=== PATIENT | female | born 1980 | race Caucasian/White ===

== ENCOUNTER 2018-09-08 08:59 | Outpatient (CLI) | payer BC, SELFPAY ==
[2018-09-08 10:49] LABS: HGB 13.4 g/dL (12.0-15.5)
[2018-09-08 11:13] LABS: TSH (W/Ref FT4) 2.13 uIU/mL (0.358-3.74)
== END 2018-09-08 09:19 ==
PROVIDERS: PCP Emergency Medicine; Visit Provider Internal Medicine
DX: E03.9 Hypothyroidism, unspecified (principal); Z86.2 Personal history of diseases of the blood and blood-forming organs and certain disorders involving the immune mechanism
CPT/HCPCS: 36415; 84443; 85014; 85018

== ENCOUNTER 2019-10-02 07:00 | Outpatient (CLI) | payer BC, SELFPAY ==
[2019-10-02 13:10] LABS: TSH 3.12 uIU/mL (0.36-3.74)
== END 2019-10-02 07:20 ==
PROVIDERS: PCP Emergency Medicine; Visit Provider Emergency Medicine
DX: E03.9 Hypothyroidism, unspecified (principal)
CPT/HCPCS: 36415; 84443

== ENCOUNTER 2020-09-17 18:10 | Outpatient (REF) | payer BC, SELFPAY ==
[2020-09-17 21:11] LABS: TSH 0.52 uIU/mL (0.36-3.74)
== END 2020-09-17 18:30 ==
LOC: LBN 18:10
PROVIDERS: PCP Emergency Medicine; Visit Provider Emergency Medicine
DX: E03.9 Hypothyroidism, unspecified (principal)
CPT/HCPCS: 84443

== ENCOUNTER 2021-10-13 09:46 | Outpatient (REF) | payer BC, SELFPAY ==
--- NOTE | 2021-10-13 08:30 | PAPFT_PTH ---
PATIENT: Luciana Munoz LOC: [facility] U#:[id number] AGE/SX: 41/F ROOM: RE10/13/[address]: Vanessa Abad NP : [id number] BED: DIS: 10/13/2021 SPEC #: [id number] RECD: 10/13/21 13:03 STATUS: ROSE RECarter #: [id number] LILO: 10/13/21 08:[address]: Jenniffer SANDOVAL,Vanessa DEPT: [facility] Cytology RECD BY: Beth Montalvo ENTERED: 10/13/21 13:03 SP TYPE: PAPFT OTHR DR: Lucio Barksdale, DO Tissues: 1 - CX/ENDOCX FOR PAP SMEARS Procedures: PAP THIN PREP/UVM Screening HPV DNA PROBE Comments: [id number]
== END 2021-10-13 09:47 | disposition home or self-care (01) ==
LOC: LBN 09:46
PROVIDERS: PCP Emergency Medicine; Visit Provider Nurse Practitioner Women's Health
DX: Z12.4 Encounter for screening for malignant neoplasm of cervix (principal); Z11.51 Encounter for screening for human papillomavirus (HPV)
CPT/HCPCS: 88142; 87624

== ENCOUNTER 2021-10-28 01:25 | Outpatient (CLI) | payer BC, SELFPAY ==
--- NOTE | 2021-10-28 06:30 | DI.MAMMO_ITS ---
Exam(s) MAMMO SCREENING EXAM: MAMMO SCREENING CLINICAL HISTORY: screening,z12.39, family h/o breast ca TECHNIQUE: Bilateral full field digital CC and MLO mammographic images were obtained with 3D tomosyn thesis and utilizing computer aided detection (CAD). COMPARISON: None. FINDINGS: Masses/Architectural Distortion: None seen. Microcalcifications: No suspicious pleomorphic-type are seen. Skin Thickening/Nipple Retraction: None. IMPRESSION: 1. No significant interval change with no specific features of malignancy noted. 2. Unless there is more urgent need, screening mammography is recommended, as per [employer] guidelines. BI-RADS Category 1 - Negative Breast Density - Category B - Scattered areas of fibroglandular density Breast density category C or D implies that the patient has dense breast tissue. Dense breast tissue is very common and is not abnormal but dense breast tissue can make it harder to find cancer on a ma mmogram. Also, dense breast tissue may increase their breast cancer risk. This information about the result of the mammogram report was provided to the patient to raise their awareness. Use this report when you speak with the patient about their risks for breast cancer, which includes their family hist ory. At that time, you may recommend for more screening tests (Ultrasound or MRI) as they might be us eful based on their risk. A negative radiographic report should not delay biopsy if a dominant or clinically suspicious mass is present. Up to ten percent of cancers are not identified on mammography. A negative report may reinforce clinical impression. Adenosis and dense breasts may obscure an underlying neoplasm. False positive reports average 6 to 10%. Patient will receive a letter notifying them of these results.
== END 2021-10-28 01:45 ==
PROVIDERS: PCP Emergency Medicine; Visit Provider Emergency Medicine
DX: Z12.31 Encounter for screening mammogram for malignant neoplasm of breast (principal)
CPT/HCPCS: 77063; 77067

== ENCOUNTER 2022-02-04 18:08 | Outpatient (REF) | payer BC, SELFPAY ==
[2022-02-04 20:22] LABS: TSH 2.06 uIU/mL (0.36-3.74)
[2022-02-06 13:11] LABS: COVID-19 RT-PCR UVMMC Result Negative (Negative)
== END 2022-02-04 18:09 | disposition home or self-care (01) ==
LOC: LBN 18:08
PROVIDERS: Emergency Medicine; PCP Family Medicine; Visit Provider Family Medicine
DX: E03.9 Hypothyroidism, unspecified (principal); Z20.822 Contact with and (suspected) exposure to COVID-19
CPT/HCPCS: U0003; 84443

== ENCOUNTER 2022-12-17 02:01 | Outpatient (CLI) | payer BC, SELFPAY ==
--- NOTE | 2022-12-17 07:55 | DI.MAMMO_ITS ---
Exam(s) MAMMO SCREENING EXAM: MAMMO SCREENING CLINICAL HISTORY: screening,z12.39 TECHNIQUE: Mammograms were interpreted according to the usual protocol including computer analysis w [employer] CAD system, tomosynthesis and C-view imaging. COMPARISON: 2020 FINDINGS: The breasts are composed of scattered fibroglandular densities, Breast Density category B. No suspicious masses or suspicious microcalcifications are seen. No skin thickening or abnormal axillary lymph nodes are seen. There has been no significant change from prior exams. IMPRESSION: BI-RADS Category 1, Negative mammogram Yearly screening mammography is recommended. Breast Density - Category B, scattered fibroglandular densities. A negative radiographic report should not delay biopsy if a dominant or clinically suspicious mass is present. Up to ten percent of cancers are not identified on mammography. A negative report may reinforce clinical impression. Adenosis and dense breasts may obscure an underlying neoplasm. False positive reports average 6 to 10%. Patient will receive a letter notifying them of these results.
== END 2022-12-17 02:21 ==
LOC: DI 02:01
PROVIDERS: PCP Nurse Practitioner Family; Visit Provider Nurse Practitioner Family
DX: Z12.31 Encounter for screening mammogram for malignant neoplasm of breast (principal)
CPT/HCPCS: 77063; 77067

== ENCOUNTER 2023-02-23 02:32 | Outpatient (CLI) | payer BC, SELFPAY ==
[2023-02-23 18:14] LABS: TSH (W/Ref FT4) 2.29 uIU/mL (0.36-3.74)
[2023-02-25 10:45] LABS: Hepatitis C Ab w Rflx HCV PCR Negative (Negative)
== END 2023-02-23 02:33 | disposition home or self-care (01) ==
PROVIDERS: PCP Nurse Practitioner Family; Visit Provider Nurse Practitioner Family
DX: Z11.59 Encounter for screening for other viral diseases (principal); E03.9 Hypothyroidism, unspecified
CPT/HCPCS: 36415; 86803; 84443

== ENCOUNTER 2023-11-19 10:14 | Outpatient (REF) | payer BC, SELFPAY ==
[2023-11-19 12:13] LABS: HCT 38.1 % (36.0-46.0); HGB 12.5 g/dL (11.2-15.7); MCH 30.2 pg (27.0-33.0); MCHC 32.8 % (32.0-36.0); MCV 92 fL (80-95); Platelet Count 207 10^3/uL (130-400); RBC 4.14 10^6/uL (3.93-5.22); RDW 13.8 % (11.7-14.6); RDW-SD 46.7 fL; WBC 6.41 10^3/uL (4.4-10.8)
[2023-11-19 12:47] LABS: ALT 27 U/L (14-59); AST 18 U/L (15-37); Albumin 3.8 g/dL (3.4-5.0); Alkaline Phosphatase 50 U/L (46-116); Anion Gap 8.7 mmol/L (3-11); BUN 13 mg/dL (7-18); Bilirubin, Total 0.3 mg/dL (0.2-1.0); CO2 24.3 mmol/L (21.0-32.0); CREATININE 0.7 mg/dL (0.55-1.02); Calcium 9.4 mg/dL (8.5-10.1); Calculated LDL 138 mg/dL (<100); Chloride 105 mmol/L (98-107); Cholesterol 241 mg/dL (<200); Estimated GFR 110.67 (mL/min/1.73m2); Glucose 101 mg/dL (74-106); HDL Cholesterol 96 mg/dL (40-60); Sodium 138 mmol/L (136-145); TSH (W/Ref FT4) 2.07 uIU/mL (0.36-3.74); Total Protein 7.7 g/dL (6.4-8.2); Triglyceride 39 mg/dL (<150); Vitamin B12 363 pg/mL (193-986)
== END 2023-11-19 10:15 | disposition home or self-care (01) ==
LOC: LBN 10:14
PROVIDERS: PCP Nurse Practitioner Family; Visit Provider Nurse Practitioner Family
DX: E03.9 Hypothyroidism, unspecified (principal); R41.3 Other amnesia; Z13.220 Encounter for screening for lipoid disorders
CPT/HCPCS: 80053; 80061; 85027; 82607; 84443

== ENCOUNTER 2023-12-13 04:05 | Outpatient (CLI) | payer BC, SELFPAY ==
--- NOTE | 2023-12-13 13:44 | W.PFT ---
Date of service: 12/13/23 Time of Service: 10:05 Pulmonary Function Test Result Indications: Wheezing Interpretation Spirometry: There is no baseline airflow limitation. There was a 22% decrease in FEV1 with administration of 0.5mg/mL methacholine. Impression Positive methacholine challenge testing Clinical Correlation therefore is recommended.
[2023-12-13] MEDS: Methacholine 100 MG VIAL IH (14:42)
[2023-12-13] MEDS: Albuterol HFA 18 GM 200 PUFF INH IH (14:42)
[2023-12-13] MEDS: Inhaler, Assist Device 1 EACH MC (14:43)
== END 2023-12-13 04:06 | disposition home or self-care (01) ==
LOC: RT 04:05
PROVIDERS: PCP Nurse Practitioner Family; Visit Provider Nurse Practitioner Family
DX: R06.00 Dyspnea, unspecified (principal)
CPT/HCPCS: 94060; 94070; J7674

== ENCOUNTER 2024-12-19 00:18 | Outpatient (CLI) | payer BC, SELFPAY ==
--- OUTSIDE RECORDS SUMMARY | 2024-12-19 00:20 | XMS_ITS | Encounter Summary ---
[place] [address] Care Team Providers Care Bingo Caller Name Role Phone Lucio Barksdale DO Primary Care Provider Encounter Details Date Type Department Care Team (Late st Contact Info) Description 09/06/2019 [place] [phone] Mich Arellano Social History Tobacco Use Types Packs/Day Years Used Date Smoking Tobacco: Never Smokeless Tobacco: Never Comments:No ets Sex and Gender Information Value Date Recorded Sex Assigned at Not on file Gender Identity Not on file Sexual Orientation Not on file documented as of this encounter Miscellaneous Notes * Telephone Encounter - Mich Arellano - 09/06/2019 2:38 PM EDT Left message for pt to call to schedule surgery with Dr. Angel Luis Man. documented in this encounter Plan of Treatment Not on file documented as of this encounter Visit Diagnoses Not on filedocumented in this encounter Care Teams Bingo Caller Relationship Specialty Start Date End Date Lucio Barksdale DO [address] [place], [place] [id number] PCP - General Family Medicine 04/11/19 documented as of this encounter
--- OUTSIDE RECORDS SUMMARY | 2024-12-19 00:20 | XMS_ITS | Encounter Summary ---
[place] [address] Care Team Providers Care Traffic Recorder Name Role Phone Lucio Barksdale DO Primary Care Provider [phone] Encounter Details Date Type Department Care Team (Late st Contact Info) Description 10/19/2019 Telephone [place] [phone] Enedina Law RN Social History Tobacco Use Types Packs/Day Years Used Date Smoking Tobacco: Never Smokeless Tobacco: Never Comments:No ets Sex and Gender Information Value Date Recorded Sex Assigned at Not on file Gender Identity Not on file Sexual Orientation Not on file documented as of this encounter Miscellaneous Notes * Telephone Encounter - Enedina Law RN - 10/19/2019 4:30 PM EST Returned 's call. is asking how to alternate tylenol and ibuprofen. Instructions given according to package directions.Patient inquiring about what to expect at follow up appointment. Explanations given with stated understanding. No other questions or concerns at this time. documented in this encounter Plan of Treatment Not on file documented as of this encounter Visit Diagnoses Not on filedocumented in this encounter Care Teams Traffic Recorder Relationship Specialty Start Date End Date Lucio Barksdale DO [address] [place] [address] PCP - General Family Medicine 04/11/19 documented as of this encounter
--- OUTSIDE RECORDS SUMMARY | 2024-12-19 00:20 | XMS_ITS | Encounter Summary ---
[place] [address] Care Team Providers Care Corn Popper Name Role Phone Lucio Barksdale DO Primary Care Provider Encounter Details Date Type Department Care Team (Late st Contact Info) Description 11/29/2019 Telephone [place] [phone] Denisse Christopher Social History Tobacco Use Types Packs/Day Years Used Date Smoking Tobacco: Never Smokeless Tobacco: Never Comments:No ets Sex and Gender Information Value Date Recorded Sex Assigned at Not on file Gender Identity Not on file Sexual Orientation Not on file documented as of this encounter Miscellaneous Notes * Telephone Encounter - Denisse Christopher - 11/29/2019 3:33 PM EST Called patient to schedule 8 week FUV with RS final check post Septoplasty. Lft VM with tentative date and time and advised to contact the clinic to confirm or reschedule. documented in this encounter Plan of Treatment Not on file documented as of this encounter Visit Diagnoses Not on filedocumented in this encounter Care Teams Corn Popper Relationship Specialty Start Date End Date Lucio Barksdale DO [address] [place] [address] PCP - General Family Medicine 04/11/19 documented as of this encounter
--- OUTSIDE RECORDS SUMMARY | 2024-12-19 00:20 | XMS_ITS | Encounter Summary ---
[place] [address] Care Team Providers Care Airport Screener Name Role Phone Lucio Barksdale DO Primary Care Provider Encounter Details Date Type Department Care Team (Late st Contact Info) Description 07/31/2019 8:00 AM EDT [place] [address] Social History Tobacco Use Types Packs/Day Years Used Date Smoking Tobacco: Never Smokeless Tobacco: Never Comments:No ets Sex and Gender Information Value Date Recorded Sex Assigned at Not on file Gender Identity Not on file Sexual Orientation Not on file documented as of this encounter Plan of Treatment Not on file documented as of this encounter Procedures Procedure Name Priority Date/Time Associated Diagnosis Comments ALLERGY SCAN 07/31/2019 12:00 AM EDT documented in this encounter Results * SCAN DOC: ALLERGY (07/31/2019 12:00 AM EDT) Narrative 07/31/2019 12:00 AM EDT Ordered by an unspecified provider. Scanning Provider MEDIA MGR SCAN EXT O RDR/RSLT documented in this encounter Visit Diagnoses Not on filedocumented in this encounter Care Teams Airport Screener Relationship Specialty Start Date End Date Lucio Barksdale DO [address] [place] [address] PCP - General Family Medicine 04/11/19 documented as of this encounter
--- OUTSIDE RECORDS SUMMARY | 2024-12-19 00:20 | XMS_ITS | Encounter Summary ---
Author Organization [facility] [place] [address] Care Team Providers Care Manager Product Support Name Role Phone ShamirLucio burgos Primary Care Provider Reason for Visit * Auth/Cert Specialty Diagnoses / Procedures Referred By Zachary miramontes Referred To Contact Diagnoses deviated nasal septum Procedures PRO REPAIR OF NASAL SEPTUM PRO CAUTER TURBINATE MUCOSA, SUPERFICIAL SEPTOPLASTY OR SMR, W/ OR W/O CARTILAGE SCORING, CONTOURING OR REPLACEMENT W/ GRAFT (WRVU 7.01) ABLATION INFERIOR TURBINATE, SUPERFICIAL (WRVU 1.14) Referral ID Status Reason Start Date Expiration Date Visits Re quested Visits Authorized [id number] 1 1 Encounter Details Date Type Department Care Team (Latest Contact Info) Description 10/19/2019 10:05 AM EST - 10/19/2019 1:21 PM [facility] Hospital Encounter Out[place] [address] Angel Luis Man III, MD [facility] [place] [address] Discharge Disposition: Home Social History Tobacco Use Types Packs/Day Years Used Date Smoking Tobacco: Never Smokeless Tobacco: Never Comments:No ets Sex and Gender Information Value Date Recorded Sex Assigned at Not on file Gender Identity Not on file Sexual Orientation Not on file documented as of this encounter Last Filed Vital Signs Vital Sign Reading Time Taken Comments Blood Pressure 137/84 10/19/2019 1:04 PM EST Pulse 69 10/19/2019 1:04 PM EST Temperature 36.5 ??C (97.7 ??F) 10/19/2019 12:[address] Respiratory Rate 18 10/19/2019 1:04 PM EST Oxygen Saturation 99% 10/19/2019 1:04 PM EST Inhaled Oxygen Concentration - - Weight 78 kg (172 lb) 10/19/2019 11:00 AM EST Height - - Body Mass Index 30.47 08/23/2019 11:01 AM EDT documented in this encounter Discharge Instructions * Discharge Instructions* Stacey Pardo RN - 10/19/2019 10:49 AM EST General Anesthesia Discharge Instructions Go home and rest. You may be sleepy for several hours. Take it easy as sudden position changes may cause nausea and/or dizziness. Use caution on stairs. Do not smoke if you are alone. Follow a light to regular diet as tolerated today. If nausea occurs, start with clear liquids, and progress slowly to a regular diet. Do not drive, operate machinery, drink alcoholic beverages or make any legal decisions after havinggeneral anesthesia. The medications given change your reaction time and alter your judgement. IV site -- slight redness is normal, you can use warm compresses. If tenderness and redness increases or foul drainage occurs, please contact your M.D. Patients who have had endotracheal tubes/LMA (tubes used by the anesthesia staff to ensure a safe airway during your operation) may have a sore throat. This is normal and cold liquids or soothing lozenges will help ease this discomfort. Narcotic pain medications can cause constipation, please ask the surgeons office what they recommend for prevention of this. Some non-pharmaceutical means of constipation prevention include increasing intake of fluids, eating more fruits and vegetables as well as fruit juices. If you are uncomfortable and/or unable to urinate within 8 hours of discharge and it is before 5 pm, call your physician. If it is after 5pm go to the closest emergency room or call the hospital hydropulper operator at [phone] and ask for physician environmental analyst covering for your physician. Questions or problems after 5pm or on a weekend: Call the [facility] hydropulper operator at and ask for the physician environmental analyst covering for your doctor. * Patient Instructions* Angel Luis Man III, MD - 10/19/2019 11:28 AM EST Endoscopic Sinus Surgery/Septoplasty - Postoperative Discharge Instructions You are being discharged to home after having undergone septoplasty This procedure is designed to better manage your nasal symptoms. What we as a team (physicians, nurses and the patient) do in the immediate postoperative period will impact your long-term results and outcome. Instructions: 1. Avoid strenuous activity for the first 48 hours, and slowly increase activity. Avoid lifting (for most adults) objects heavier than 20 lbs for the first five days. 2. Keep a drip pad (gauze) under your nose for comfort, if you would like. 3. Avoid straining significantly to have bowel movements. Use gdjw-ziy-kezredz stool softeners if needed. 4. Sneeze with your mouth open. 5. Your nose may feel very congested post surgery (like a sinus infection). This is normal. You mayuse Afrin nasal spray as needed for the first 48 hours after surgery. And for significant bleeding. 6. Buy a Roe-Med sinus rinse kit or use nasal saline spray every few hours to keep your nose moist. You will notice blood-stained discharge initially which progressively clears. 7. Unless specifically told otherwise, start blowing your nose gently after saline rinses on postoperative day #5 . 8. Follow up with your surgeon as scheduled. 9. DO NOT USE ASPIRIN FOR PAIN for the first 72 hours 10. If you are on Baby or regular Asprin therapy, you may resume it therapy three days after yoursurgery. If you are on Plavix, please wait for one week and confirm at your first post op check When to Call: 1. Fever greater than 101.5 degrees. 2. Unrelenting pain (especially on one side) not responsive to two or three doses of pain medicinesand saline rinses 3. Bleeding. A good way to measure significant bleeding from normal ???postoperative?? oozing is to tape a drip pad under your nose. If you are changing this more than once an hour and this does notimprove with afrin spray, you need to be evaluated. 4. Nausea or vomiting. 5. Blurry vision, eye pain or eye swelling Contact Information: ?? The Otolaryngology nurse can be reached at and can answer any ?? questions you may have during the day. ?? The [facility] hydropulper operator can be reached at and can connectyou with a resident environmental analyst if necessary after hours. If you need to reschedule your appointment please call the clinic at . documented in this encounter Medications at Time of Discharge Medication Sig Dispensed Refills Start Date End Date montelukast (SINGULAIR) 10 mg Tablet Take 1 tablet by mouth nightly. 30 tablet 12 07/31/2019 cetirizine (ZYRTEC) 10 mg Tablet 06/15/2019 levothyroxine (SYNTHROID) 75 mcg Tablet 05/14/2019 triamcinolone (KENALOG) 0.1 % Cream 04/11/2019 albuterol 90 mcg/actuation HFA Aerosol Inhaler Inhale 2 puffs into the lungs every 4 hours as needed for Wheezing. 1 Inhaler 1 06/26/2019 azelastine (ASTELIN) 137 mcg (0.1 %) Aerosol, [place] 2 sprays in each nostril BID 30 mL 11 06/26/2019 [facility] Free Text Med - Albuterol 07/10/2008 MOMETASONE FUROATE (NASONEX NASL) 07/10/2008 fexofenadine (JEFF) 180 mg tablet 07/10/2008 documented as of this encounter H&P Notes * Angel Luis Man III, MD - 10/19/2019 11:10 AM EST Patient Name: Luciana Sinclair Patient Age: 39 y.o. Birthdate: 1980 Admit date: 10/19/2019 Attending Physician: Angel Luis Man III, MD The pre-operative documentation is reviewed, and there is no change since the last physical examination was done. documented in this encounter Miscellaneous Notes * Op Note - Angel Luis Man III, MD - 10/19/2019 11:26 AM EST [facility] Operative Note Patient Name: Luciana Sinclair : [id number] MR#: [id number] Case Date: 10/19/2019 Surgeon: Surgeon(s) and Role: * Angel Luis Man III, MD - Primary Preoperative diagnosis: deviated nasal septum Postoperative diagnosis: deviated nasal septum Procedure(s) (LRB): SEPTOPLASTY OR SMR, W/ OR W/O CARTILAGE SCORING, CONTOURING OR REPLACEMENT W/ GRAFT (WRVU 7.01) (N/A) ABLATION INFERIOR TURBINATE, SUPERFICIAL (WRVU 1.14) (Bilateral) Anesthesia: General Estimated Blood Loss: * No values recorded between 10/19/2019 12:00 AM and 10/19/2019 11:26 AM * Specimens removed during surgery: * No orders in the log * Drains: * No LDAs found * Surgical Closure: Primary Closure - skin incision is completely closed without any wires, malik, drains or other devices Disposition: awakened from anesthesia, extubated and taken to the recovery room in a stable condition, having suffered no apparent untoward event. Condition: doing well without problems (Please see the Surgical Encounter Summary for any Implant and Specimen details pertinent to this patient.) HPI/Surgical Indications: deviated nasal septum, turbinate hypertrophy Procedure Description: The patient was brought to the operating room, and following the induction of satisfactory general anesthesia was positioned in standard fashion for nasal surgery. Bilateral decongestant/anesthetic packs were placed, and one ml of 2% lidocaide with epi was injected into the anterior septum on the right side. After sufficient time was allowed for the anesthetic to work the packs were removed. An anterior septal incision was made on the right side, and using a [place] elevator the perichondrium and periosteum were elevated as far posteriorly as needed. The cartilaginous septum was from the bony septum, and areas of bony or cartilaginous spurring were removed with Karen forceps and/or double action rongeurs to straighten the septum. Scoring of the cartilaginous remnant in this case was accomplished with a # 15 blade.. The anterior incision was closed witha single 4-0 chromic suture. Each inferior turbinate was next reduced in size with the bipolar cautery and out fractured, greatly enlarging the airway. Hart splints were placed, and the patient was returned to the recovery room in satisfactory condition. Infection Bundle used? No Attestation: Case Date: 10/19/2019 I performed this procedure without the involvement of a resident. Angel Luis Man III, MD 10/19/2019 documented in this encounter Plan of Treatment Not on file documented as of this encounter Procedures Procedure Name Priority Date/Time Associated Diagnosis Comments Ablation Soft Tissue Inferior Turbinates Uni/Bi Superficial (53090) 10/19/2019 11:29 AM EST DNS (deviated nasal septum) Nasal turbinate hypertrophy Septoplasty/Submucou s Resection W/Wo Cartilage Graft (68131) 10/19/2019 11:29 AM EST DNS (deviated nasal septum) Nasal turbinate hypertrophy POCT URINE Routine 10/19/2019 documented in this encounter Results * POCT urine (10/19/2019) POC Urine HCG Negative Negative - Negative Comment:RN notified POC Control Internal Controls Acceptable 10/19/2019 Angel Luis Man III, MD POINT OF CARE TE ST ORDERABLES documented in this encounter Visit Diagnoses Not on filedocumented in this encounter Administered Medications Inactive Administered Medications - up to 3 most recent administrations Medication Order MAR Action Action Date Dose Rate Site HYDROmorphone (DILAUDID) injection 0.2-0.4 mg 0.2-0.4 mg, Intravenous, EVERY 5 MIN PRN, Starting on Mela 10/19/19 at 1220, Until Mela 10/19/19 at 1523, Pain, Give 0.2 mg every 5 minutes PRN for mild to moderate pain (1-5) Give 0.4 mg every 5 minutes PRN for moderate to severe pain (6-10). Hold for respiratory rate less than 10 per minute. Maximum dose 4 mg over one hour. If multiple pain medications are ordered, start with hydromorphone or morphine and use fentanyl for breakthrough pain., PACU Recovery, Routine ibuprofen (ADVIL;MOTRIN) tablet 600 mg 600 mg, Oral, EVERY 6 HOURS PRN, Starting on Mela 10/19/19 at 1112, Until Mela 10/19/19 at 1523, Pain, Administer orally with milk or food to minimize GI irritation. Maximum dose of 3200 mg from all sources in 24 hours, Routine ibuprofen (ADVIL;MOTRIN) tablet 600 mg 600 mg, Oral, EVERY 6 HOURS PRN, Starting on Mela 10/19/19 at 1126, Until Mela 10/19/19 at 1523, Pain, Administer orally with milk or food to minimize GI irritation. Maximum dose of 3200 mg from all sources in 24 hours, Routine lactated ringers infusion 1,000 mL, at 100 mL/hr, Intravenous, CONTINUOUS, Starting on Mela 10/19/19 at 1115, Until Mela 10/19/19 at 1523, Day of Surgery (Day of Procedure) New Bag 10/19/2019 11:29 AM EST New Bag 10/19/2019 11:20 AM EST 1,000 mLs 100 mL/hr lidocaine (XYLOCAINE) 10 mg/mL (1 %) injection 3 mg 3 mg (0.3 mL), Subcutaneous, ONCE PRN, 1 dose, Starting on Mela 10/19/19 at 1048, Until Mela 10/19/19 at 1523, for discomfort with PIV insertion, Day of Surgery (Day of Procedure), Routine lidocaine (XYLOCAINE) 10 mg/mL (1 %) injection 3 mg 3 mg (0.3 mL), Subcutaneous, ONCE PRN, 1 dose, Starting on Mela 10/19/19 at 1111, Until Mela 10/19/19 at 1523, for discomfort with PIV insertion, Routine lidocaine (XYLOCAINE) 10 mg/mL (1 %) injection 3 mg 3 mg (0.3 mL), Subcutaneous, ONCE PRN, 1 dose, Starting on Mela 10/19/19 at 1125, Until Mela 10/19/19 at 1523, for discomfort with PIV insertion, Routine naloxone (NARCAN) injection 0.04 mg 0.04 mg, Intravenous, EVERY 5 MIN PRN, Starting on Mela 10/19/19 at 1220, Until Mela 10/19/19 at 1523, Opioid Reversal, for respiratory rate less than 6 or unresponsive., May repeat every 5 minutes to increase respiratory rate. DO NOT exceed 0.12 mg total dose. Notify anesthesia immediately if administered., PACU Recovery, Routine ondansetron (ZOFRAN) injection 4 mg 4 mg, Intravenous, EVERY 30 MIN PRN, Starting on Mela 12 at 1220, Until Mela 12 at 1523, Nausea, May repeat 4 mg once in 30 minutes. If multiple antiemetics ordered, use ondansetron first and if ineffective use prochlorperazine second and if ineffective use promethazine, PACU Recovery sodium chloride 0.9 % (flush) flush 5 mL 5 mL, Intravenous, 2 TIMES DAILY, First dose on Mela 10/19/19 at 1130, Until Discontinued, Routine sodium chloride 0.9 % (flush) flush 5 mL 5 mL, Intravenous, 2 TIMES DAILY, First dose on Mela 10/19/19 at 1145, Until Discontinued, Routine sodium chloride 0.9 % (flush) flush 5-20 mL 5-20 mL, Intravenous, EVERY 1 MIN PRN, Starting on Mela 10/19/19 at 1048, Until Mela 12 at 1523, flush, Flush pertains to all indwelling lines. Flush per protocol found in the job aid using the link provided on this medication record., Day of Surgery (Day of Procedure), Routine sodium chloride 0.9 % (flush) flush 5-20 mL 5-20 mL, Intravenous, EVERY 1 MIN PRN, Starting on Mela 10/19/19 at 1111, Until Mela 12 at 1523, flush, Flush pertains to all indwelling lines. Flush per protocol found in the job aid using the link provided on this medication record., Routine sodium chloride 0.9 % (flush) flush 5-20 mL 5-20 mL, Intravenous, EVERY 1 MIN PRN, Starting on Mela 10/19/19 at 1125, Until Mela 1219 at 1523, flush, Flush pertains to all indwelling lines. Flush per protocol found in the job aid using the link provided on this medication record., Routine documented in this encounter Active and Recently Administered Medications Times are shown in EST. Scheduled Medication Order 10/17/2019 10/18/2019 10/19/2019 sodium chloride 0.9 % (flush) flush 5 mL 5 mL, Intravenous, 2 TIMES DAILY, First dose on Mela 10/19/19 at 1130, Until Discontinued, Routine 1130 (Due) sodium chloride 0.9 % (flush) flush 5 mL 5 mL, Intravenous, 2 TIMES DAILY, First dose on Mela 10/19/19 at 1145, Until Discontinued, Routine 1145 (Due) Continuous Medication Order 10/17/2019 10/18/2019 10/19/2019 lactated ringers infusion 1,000 mL, at 100 mL/hr, Intravenous, CONTINUOUS, Starting on Mela 10/19/19 at 1115, Until Mela 10/19/19 at 1523, Day of Surgery (Day of Procedure) 1120 (New Bag - Prov ider: Stacey Pardo RN)1129 (New Bag - Provider: Albert Freedman MD)1210 (Anesthesia Volume Adjustment - Provider: Denisse Hoffmann CRNA) PRN Medication Order 10/17/2019 10/18/2019 10/19/2019 bacitracin ointment (CANCELED) ONCE PRN, Starting on Mela 10/19/19 at 1147, Until Mela 10/19/19 at 1523, Intra-Operative (Intra-Procedure) 1147 (Given - Provid er: Angel Luis Man III, MD - Comment: On Hart splints) cocaine HCl 4% topical solution (CANCELED) ONCE PRN, Starting on Mela 10/19/19 at 1140, Until Mela 10/19/19 at 1523, Intra-Operative (Intra-Procedure) 1140 (Given - Provid er: Angel Luis Man III, MD - Comment: Paddies soaked and applied to both nostrils prior to incision.) HYDROmorphone (DILAUDID) injection 0.2-0.4 mg 0.2-0.4 mg, Intravenous, EVERY 5 MIN PRN, Starting on Mela 19 at 1220, Until Mela 1219 at 1523, Pain, Give 0.2 mg every 5 minutes PRN for mild to moderate pain (1-5) Give 0.4 mg every 5 minutes PRN for moderate to severe pain (6-10). Hold for respiratory rate less than 10 per minute. Maximum dose 4 mg over one hour. If multiple pain medications are ordered, start with hydromorphone or morphine and use fentanyl for breakthrough pain., PACU Recovery, Routine ibuprofen (ADVIL;MOTRIN) tablet 600 mg 600 mg, Oral, EVERY 6 HOURS PRN, Starting on Mela 1219 at 1112, Until Mela 1219 at 1523, Pain, Administer orally with milk or food to minimize GI irritation. Maximum dose of 3200 mg from all sources in 24 hours, Routine ibuprofen (ADVIL;MOTRIN) tablet 600 mg 600 mg, Oral, EVERY 6 HOURS PRN, Starting on Mela 19 at 1126, Until Mela 1219 at 1523, Pain, Administer orally with milk or food to minimize GI irritation. Maximum dose of 3200 mg from all sources in 24 hours, Routine lidocaine (XYLOCAINE) 10 mg/mL (1 %) injection 3 mg 3 mg (0.3 mL), Subcutaneous, ONCE PRN, 1 dose, Starting on Mela 19 at 1048, Until Mela 1219 at 1523, for discomfort with PIV insertion, Day of Surgery (Day of Procedure), Routine lidocaine (XYLOCAINE) 10 mg/mL (1 %) injection 3 mg 3 mg (0.3 mL), Subcutaneous, ONCE PRN, 1 dose, Starting on Mela 1219 at 1111, Until Mela 12//19 at 1523, for discomfort with PIV insertion, Routine lidocaine (XYLOCAINE) 10 mg/mL (1 %) injection 3 mg 3 mg (0.3 mL), Subcutaneous, ONCE PRN, 1 dose, Starting on Mela 1219 at 1125, Until Mela 12//19 at 1523, for discomfort with PIV insertion, Routine lidocaine-EPINEPHrine 1 %-1:100,000 injection (CANCELED) ONCE PRN, Starting on Mela 1219 at 1143, Until Mela 12//19 at 1523, Intra-Operative (Intra-Procedure), Routine 1143 (Given - Provid er: Angel Luis Man III, MD) naloxone (NARCAN) injection 0.04 mg 0.04 mg, Intravenous, EVERY 5 MIN PRN, Starting on Mela 1219 at 1220, Until Mela 12//19 at 1523, Opioid Reversal, for respiratory rate less than 6 or unresponsive., May repeat every 5 minutes to increase respiratory rate. DO NOT exceed 0.12 mg total dose. Notify anesthesia immediately if administered., PACU Recovery, Routine ondansetron (ZOFRAN) injection 4 mg 4 mg, Intravenous, EVERY 30 MIN PRN, Starting on Mela 1219 at 1220, Until Mela 1219 at 1523, Nausea, May repeat 4 mg once in 30 minutes. If multiple antiemetics ordered, use ondansetron first and if ineffective use prochlorperazine second and if ineffective use promethazine, PACU Recovery sodium chloride 0.9 % (flush) flush 5-20 mL 5-20 mL, Intravenous, EVERY 1 MIN PRN, Starting on Mela 1219 at 1048, Until Mela 1219 at 1523, flush, Flush pertains to all indwelling lines. Flush per protocol found in the job aid using the link provided on this medication record., Day of Surgery (Day of Procedure), Routine sodium chloride 0.9 % (flush) flush 5-20 mL 5-20 mL, Intravenous, EVERY 1 MIN PRN, Starting on Mela 1219 at 1111, Until Mela 1219 at 1523, flush, Flush pertains to all indwelling lines. Flush per protocol found in the job aid using the link provided on this medication record., Routine sodium chloride 0.9 % (flush) flush 5-20 mL 5-20 mL, Intravenous, EVERY 1 MIN PRN, Starting on Mela 1219 at 1125, Until Mela 12//19 at 1523, flush, Flush pertains to all indwelling lines. Flush per protocol found in the job aid using the link provided on this medication record., Routine documented in this encounter Care Teams Manager Product Support Relationship Specialty Start Date End Date Lucio Barksdale DO [address] [place] [address] [address] [facility] [address] [place] [address] PCP - General Family Medicine 04/11/19 documented as of this encounter
--- OUTSIDE RECORDS SUMMARY | 2024-12-19 00:20 | XMS_ITS | Encounter Summary ---
[place] [address] Care Team Providers Care Exerciser Name Role Phone Lucio Barksdale DO Primary Care Provider Encounter Details Date Type Department Care Team (Late st Contact Info) Description 09/07/2019 Telephone [place] [id number] Mich Arellano Social History Tobacco Use Types Packs/Day Years Used Date Smoking Tobacco: Never Smokeless Tobacco: Never Comments:No ets Sex and Gender Information Value Date Recorded Sex Assigned at Not on file Gender Identity Not on file Sexual Orientation Not on file documented as of this encounter Miscellaneous Notes * Telephone Encounter - Mich Arellano - 09/07/2019 10:56 AM EDT CONFIRMED SURGERY DATE OF 09/21 WITH PATIENT. NO FOLLOWUP INDICATED IN SURGICAL ORDER. documented in this encounter Plan of Treatment Not on file documented as of this encounter Visit Diagnoses Not on filedocumented in this encounter Care Teams Exerciser Relationship Specialty Start Date End Date Lucio Barksdale DO [address] [place] [address] [place], [place] [id number] PCP - General Family Medicine 04/11/19 documented as of this encounter
--- OUTSIDE RECORDS SUMMARY | 2024-12-19 00:20 | XMS_ITS | Clinical Summary ---
Author Organization [facility] Address [address] [place] [address] Care Team Providers Care Tariff Clerk Name Role Phone Eric Lozoya MD Primary Care Provider [phone] Immunizations Name Administration Dates Next Due Historical Influenza Vaccine, Unspecified 2021 Social History Tobacco Use Types Packs/Day Years Used Date Smoking Tobacco: Never Assessed Comments Unknown Sex and Gender Information Value Date Recorded Sex Assigned at Not on file Legal Sex Female 18:38 EST Gender Identity Not on file Sexual Orientation Not on file Plan of Treatment Health Maintenance Due Date Last Done Comments Hepatitis B Vaccine (1 of 3 - 19+ 3-dose series) 06/16 COVID-19 Vaccine ( season) 2024 Hepatitis C Screen Completed 02/23/2023 Procedures Procedure Name Priority Date/Time Associated Diagnosis Comments HEPATITIS C AB W REFLEX TO HCV RNA BY PCR Routine 02/23/2023 16:43 EDT from Last 3 Months or Most Recently Relevant to Health Maintenance Results * HEPATITIS C AB W REFLEX TO HCV RNA BY PCR (02/23/2023 16:43 EDT) Hep C Antibody Negative Negative 02/25/2023 10:00 EDT [facility] Blood VENOUS BLOOD / Unknown 02/23/2023 16:43 EDT 02/24/2023 16:59 EDT us Provider Outr Resulting Lab CHEMISTRY & BLOOD GA S ORDERABLES Final Result [facility] [address] [place] [address] from Last 3 Months or Most Recently Relevant to Health Maintenance Care Teams Tariff Clerk Relationship Specialty Start Date End Date Eric Lozoya MD [address] [place] [phone] PCP - General 09/25/15
--- OUTSIDE RECORDS SUMMARY | 2024-12-19 00:20 | XMS_ITS | Encounter Summary ---
Author Organization [facility] [place] [address] Care Team Providers Care Medical Office Assistant Name Role Phone ShamirLucio burgos Primary Care Provider [phone] Reason for Visit * Reason Comments Follow-up final check feeling great Encounter Details Date Type Department Care Team (Late st Contact Info) Description 12/26/2019 11:40 AM EST Office [place] [address] Angel Luis Man III, MD [facility] [place] [address] DNS (deviated nasal septum) Social History Tobacco Use Types Packs/Day Years Used Date Smoking Tobacco: Never Smokeless Tobacco: Never Comments:No ets Sex and Gender Information Value Date Recorded Sex Assigned at Not on file Gender Identity Not on file Sexual Orientation Not on file documented as of this encounter Last Filed Vital Signs Vital Sign Reading Time Taken Comments Blood Pressure - - Pulse - - Temperature - - Respiratory Rate - - Oxygen Saturation - - Inhaled Oxygen Concentration - - Weight 78 kg (172 lb) 12/26/2019 11:47 AM EST Height 160 cm (5' 3) 12/26/2019 11:47 AM EST Body Mass Index 30.47 12/26/2019 11:47 AM EST documented in this encounter Progress Notes * Angel Luis Man III, MD - 12/26/2019 11:40 AM EST This note created with [employer] speech recognition software. Luciana Sinclair returns for final check. She is delighted with the result, noting a return ofher sense of smell and markedly improved breathing. She also notes that during a recent cold she was able to breathe throughout the illness. Review of Systems: A complete review of constitutional, eyes, cardiovascular, respiratory, GI, , musculo-skeletal, skin, endocrine, psychiatric, hematologic, lymphatic and immunologic systems is completed and is as noted in the HPI. All other systems are otherwise negative. Examination shows the following: GENERAL: Well developed, well appearing, no acute distress. Vitals reviewed. HEAD/FACE/EYES: Normocephalic with no gross deformity. Extraocular movements intact. EARS: Normal exam of the external ear, ear canal, and middle ear bilaterally. NOSE: Normal external nasal exam. Excellent airways bilaterally. Septum midline. Turbinates are normal. SALIVARY: Parotid and submandibular glands are normal to inspection and palpation. ORAL CAVITY: Normal exam of oral tongue Normal mucosa without lesion Floor of mouth is soft. Dentition good repair OROPHARYNX: Normal tonsils. Normal soft palate and uvula. Posterior pharyngeal wall normal. LARYNX: Vocal cords normal. Vocal mobility normal. No mucosal lesions noted. NECK: No asymmetry on inspection No adenopathy. Normal thyroid. RESPIRATORY: Normal voice. No stridor. Normal respirations. CV: Normal carotid pulses. NEURO/PSYCH: Normal affect. Alert and oriented x 3. Responds appropriately to questions. CN II-XII grossly intact. PROCEDURES: IMPRESSION: Well healed septoplasty with excellent airways. We will see her again only as needed. documented in this encounter Plan of Treatment Not on file documented as of this encounter Visit Diagnoses Diagnosis DNS (deviated nasal septum) Deviated nasal septum documented in this encounter Care Teams Medical Office Assistant Relationship Specialty Start Date End Date Lucio Barksdale DO [address] [place] [address] PCP - General Family Medicine 04/11/19 documented as of this encounter
--- OUTSIDE RECORDS SUMMARY | 2024-12-19 00:20 | XMS_ITS | Clinical Summary ---
Author Organization [facility] [place] [address] Care Team Providers Care Canvas Goods Supervisor Name Role Phone ShamirLucio whalen Primary Care Provider [phone] Allergies No known active allergies Medications Medication Sig Dispensed Refills Start Date End Date Status CIS Free Text Med - Albuterol 07/10/2008 Active MOMETASONE FUROATE (NASONEX NASL) 07/10/2008 Active fexofenadine (JEFF) 180 mg tablet 07/10/2008 Active cetirizine (ZYRTEC) 10 mg Tablet 06/15/2019 Active levothyroxine (SYNTHROID) 75 mcg Tablet 05/14/2019 Active triamcinolone (KENALOG) 0.1 % Cream 04/11/2019 Act erik albuterol 90 mcg/actuation HFA Aerosol Inhaler Inhale 2 puffs into the lungs every 4 hours as needed for Wheezing. 1 Inhaler 1 06/26/2019 Active azelastine (ASTELIN) 137 mcg (0.1 %) Aerosol, [place] 2 sprays in each nostril BID 30 mL 11 06/26/2019 Active montelukast (SINGULAIR) 10 mg Tablet Take 1 tablet by mouth nightly. 30 tablet 12 07/31/2019 Active Active Problems No known active problems Family History Medical History Relation Comments Allergic Rhinitis Father Relation Status Comments Father Social History Tobacco Use Types Packs/Day Years Used Date Smoking Tobacco: Never Smokeless Tobacco: Never Comments:No ets Sex and Gender Information Value Date Recorded Sex Assigned at Not on file Gender Identity Not on file Sexual Orientation Not on file Last Filed Vital Signs Vital Sign Reading [...] Mass Index 30.47 12/26/2019 11:47 AM EST Plan of Treatment Health Maintenance Due Date Last Done Comments HIV screen 1999 Hepatitis C Screening 1999 Hepatitis B vaccine (0-59 yrs) (1) 2000 Tetanus/Diphtheria/Pertussis Vaccines (1 - Tdap) 06/16 HPV test 2011 PAP Smear 2011 Breast Cancer Share Decision Needed 2021 Breast Cancer screening 2021 Covid-19 Vaccine (1 - 2023-25 season) 2024 Influenza (Flu) vaccine (1 o f 1 - Influenza standard series) 07/16/2024 Care Teams Canvas Goods Supervisor Relationship Specialty Start Date End Date Lucio Barksdale DO [address] [place], [place] [address] PCP - General Family Medicine 04/11/19
--- OUTSIDE RECORDS SUMMARY | 2024-12-19 00:20 | XMS_ITS | Encounter Summary ---
Author Organization [facility] [place] [address] Care Team Providers Care Stock Plan Administrator Name Role Phone Shamir, Lucio BLUM Primary Care Provider [phone] Reason for Visit * Auth/Cert Specialty Diagnoses [...] Expiration Date Visits Re quested Visits Authorized [id number] 1 1 Encounter Details Date Type Department Care Team (Late st Contact Info) Description 10/19/2019 11:52 AM EST - 10/19/2019 12:57 PM EST Surgery [facility] [address] Angel Luis Man III, MD [facility] [place] [address] SEPTOPLASTY OR SMR, W/ OR W/O CARTILAGE SCORING, CONTOURING OR REPLACEMENT W/ GRAFT (WRVU 7.01) Social History Tobacco Use Types Packs/Day Years Used Date Smoking Tobacco: Never Smokeless Tobacco: Never Comments:No ets Sex and Gender Information Value Date Recorded Sex Assigned at Not on file Gender Identity Not on file Sexual Orientation Not on file documented as of this encounter Last Filed Vital Signs Vital Sign Reading Time Taken Comments Blood Pressure 132/80 10/19/2019 12:45 PM EST Pulse 70 10/19/2019 12:30 PM EST Temperature 36.5 ??C (97.7 ??F) 10/19/2019 12:[address] Respiratory Rate 17 10/19/2019 12:45 PM EST Oxygen Saturation 98% 10/19/2019 12:45 PM EST Inhaled Oxygen Concentration - - [...] closest emergency room or call the hospital coating and embossing unit operator at [phone] and ask for physician front office specialist covering for your physician. Questions or problems after 5pm or on a weekend: Call the [facility] coating and embossing unit operator at and ask for the physician front office specialist covering for your doctor. * Patient Instructions* [...] straining significantly to have bowel movements. Use [id number] stool softeners if needed. 4. Sneeze with [...] may have during the day. ?? [facility] coating and embossing unit operator can be reached at [phone] and can connectyou with a resident front office specialist if necessary after hours. If you need [...] azelastine (ASTELIN) 137 mcg (0.1 %) Aerosol, [place] 2 sprays in each nostril BID 30 [...] Operative Note Patient Name: Luciana Sinclair : [id number] MR#: [id number] Case Date: 10/19/2019 Surgeon: Surgeon(s) and Role: [...] on the right side, and using a Alvin elevator the perichondrium and periosteum were elevated [...] Ablation Soft Tissue Inferior Turbinates Uni/Bi Superficial (89590) 10/19/2019 11:29 AM EST DNS (deviated nasal septum) Nasal turbinate hypertrophy Septoplasty/Submucou s Resection W/Wo Cartilage Graft (82519) 10/19/2019 11:29 AM EST DNS (deviated nasal septum) Nasal turbinate hypertrophy POCT URINE Routine 10/19/2019 documented in this encounter Results * POCT urine (10/19/2019) POC Urine HCG Negative Negative - Negative Comment:RN notified POC Control Internal Controls Acceptable 10/19/2019 Angel Luis Man III, MD POINT OF CARE TE ST ORDERABLES documented in this encounter Visit Diagnoses Diagnosis DNS (deviated nasal septum) Deviated nasal septum Nasal turbinate hypertrophy Hypertrophy of nasal turbinates documented in this encounter Administered Medications Inactive Administered Medications - up to 3 most recent administrations Medication Order MAR Action Action Date Dose Rate Site bacitracin ointment ONCE PRN, Starting on Mela 10/19/19 at 1147, Until Mela 10/19/19 at 1523, Intra-Operative (Intra-Procedure) Given 10/19/2019 11:47 AM EST 1 Tube 19- Surgical Site cocaine HCl 4% topical solution ONCE PRN, Starting on Mela 10/19/19 at 1140, Until Mela 10/19/19 at 1523, Intra-Operative (Intra-Procedure) Given 10/19/2019 11:40 AM EST 4 mLs 19- Surgical Site HYDROmorphone (DILAUDID) injection 0.2-0.4 mg 0.2-0.4 [...] PIV insertion, Routine lidocaine-EPINEPHrine 1 %-1:100,000 injection ONCE PRN, Starting on Mela 10/19/19 at 1143, Until Mela 10/19/19 at 1523, Intra-Operative (Intra-Procedure), Routine Given 10/19/2019 11:43 AM EST 1.5 mLs 19- Surgical Site naloxone (NARCAN) injection 0.04 mg 0.04 mg, [...] EVERY 30 MIN PRN, Starting on Mela 10/19/19 at 1220, Until Mela 10/19/19 at 1523, Nausea, May repeat 4 mg [...] at 1048, Until Mela 10/19/19 at 1523, flush, Flush pertains to all indwelling lines. Flush per protocol found in the job aid using the link provided on this medication record., Day of Surgery (Day of Procedure), Routine sodium chloride 0.9 % (flush) flush 5-20 mL 5-20 mL, Intravenous, EVERY 1 MIN PRN, Starting on Mela 12 at 1111, Until Mela 10/19/19 at 1523, flush, Flush pertains to all indwelling lines. Flush per protocol found in the job aid using the link provided on this medication record., Routine sodium chloride 0.9 % (flush) flush 5-20 mL 5-20 mL, Intravenous, EVERY 1 MIN PRN, Starting on Mela 10/19/19 at 1125, Until Mela 10/19/19 at 1523, flush, Flush pertains to all [...] 2 TIMES DAILY, First dose on Mela 19 at 1145, Until Discontinued, Routine 1145 (Due) [...] ointment (CANCELED) ONCE PRN, Starting on Mela 1219 at 1147, Until Mela 12/19 at 1523, Intra-Operative (Intra-Procedure) 1147 (Given - Provid er: Angel Luis Man III, MD - Comment: On Hart splints) cocaine HCl 4% topical solution (CANCELED) ONCE PRN, Starting on Mela 12/19 at 1140, Until Mela 12/19 at 1523, Intra-Operative (Intra-Procedure) 1140 (Given - [...] HOURS PRN, Starting on Mela 1219 at 1126, Until Mela 12/19 at 1523, Pain, Administer orally with milk or food to minimize GI irritation. Maximum dose of 3200 mg from all sources in 24 hours, Routine lidocaine (XYLOCAINE) 10 mg/mL (1 %) injection 3 mg 3 mg (0.3 mL), Subcutaneous, ONCE PRN, 1 dose, Starting on Mela 1219 at 1048, Until Mela 1219 at 1523, for discomfort with PIV insertion, Day of Surgery (Day of Procedure), Routine lidocaine (XYLOCAINE) 10 mg/mL (1 %) injection 3 mg 3 mg (0.3 mL), Subcutaneous, ONCE PRN, 1 dose, Starting on Mela 1219 at 1111, Until Mela 1219 at 1523, for discomfort with PIV insertion, Routine lidocaine (XYLOCAINE) 10 mg/mL (1 %) injection 3 mg 3 mg (0.3 mL), Subcutaneous, ONCE PRN, 1 dose, Starting on Mela 10/19/19 at 1125, Until Mela 12 at 1523, for discomfort with PIV insertion, Routine lidocaine-EPINEPHrine 1 %-1:100,000 injection (CANCELED) ONCE PRN, Starting on Mela 12 at 1143, Until Mela 1219 at 1523, Intra-Operative (Intra-Procedure), Routine 1143 (Given - Provid er: Angel Luis Man III, MD) naloxone (NARCAN) injection 0.04 mg 0.04 mg, Intravenous, EVERY 5 MIN PRN, Starting on Mela 10/19/19 at 1220, Until Mela 1219 at 1523, Opioid Reversal, for respiratory rate less than 6 or unresponsive., May repeat every 5 minutes to increase respiratory rate. DO NOT exceed 0.12 mg total dose. Notify anesthesia immediately if administered., PACU Recovery, Routine ondansetron (ZOFRAN) injection 4 mg 4 mg, Intravenous, EVERY 30 MIN PRN, Starting on Mela 10/19/19 at 1220, Until Mela 1219 at 1523, Nausea, May repeat 4 mg once in 30 minutes. If multiple antiemetics ordered, use ondansetron first and if ineffective use prochlorperazine second and if ineffective use promethazine, PACU Recovery sodium chloride 0.9 % (flush) flush 5-20 mL 5-20 mL, Intravenous, EVERY 1 MIN PRN, Starting on Mela 19 at 1048, Until [...] at 1111, Until Mela 10/19/19 at 1523, flush, Flush pertains to all indwelling lines. Flush per protocol found in the job aid using the link provided on this medication record., Routine sodium chloride 0.9 % (flush) flush 5-20 mL 5-20 mL, Intravenous, EVERY 1 MIN PRN, Starting on Mela 10/19/19 at 1125, Until Mela 10/19/19 at 1523, flush, Flush pertains to all indwelling lines. Flush per protocol found in the job aid using the link provided on this medication record., Routine documented in this encounter Care Teams Stock Plan Administrator Relationship Specialty Start Date End Date Lucio Barksdale DO [address] [place] [address] PCP - General Family Medicine 04/11/19 documented as of this encounter
--- OUTSIDE RECORDS SUMMARY | 2024-12-19 00:20 | XMS_ITS | Encounter Summary ---
[place] [address] Care Team Providers Care Sales Property Manager Name Role Phone ShamirLucio burgos Primary Care Provider [phone] Reason for Visit * Auth/Cert Specialty Diagnoses [...] Expiration Date Visits Re quested Visits Authorized [id number] 1 1 Encounter Details Date Type Department Care Team (Late st Contact Info) Description 10/19/2019 11:29 AM EST Anesthesia Event [facility] [place] [address] Vivek Jade MD Mussatto, John A, MD Anesthesia Record Procedure Summary Procedure Name Responsible Anesthesiologist Anesthesia Start Time Anesthesia Stop Time SEPTOPLASTY OR SMR, W/ OR W/O CARTILAGE SCORING, CONTOURING OR REPLACEMENT W/ GRAFT (WRVU 7.01) (Nose) Vivek Jade MD 10/19/19 1129 10/19/19 1210 Events Date Time Event Comment 10/19/2019 1113 1129 AN Verify 1129 Start 1129 An Start Data 1132 An Induction 1135 An Intubation 1139 Anesthesia Ready 1149 Break/Relief In Denisse haney CRNA 1204 Extubation/LMA Out 1206 an stop data 1209 Recovery or ICU Handoff Pam ent care was transferred to the destination unit staff after review of the patient's medical history, current anesthetic/surgical status and plan, according to the Provider Handoff Checklist. 1210 Stop Meds Name Total Midazolam 2 mg fentaNYL 100 mcg IV Lidocaine 80 mg Propofol 180 mg Ondansetron 4 mg Dexamethasone 4 mg Succinylcholine 80 mg lactated ringers infusion 500 mL * Agents Name O2 Air N2O Sevoflurane (et) * Blood No blood administrations on file. Lines, Drains, and Airways Type Details Placement Removal (RETIRED) Peripheral IV Line - Single Lumen 10/19/19; 1119; median cubital vein (antecubital fossa), right; [id number]-ibkdzf catheter system; 22 gauge, 1/2 in length; no longer indicated, removed per policy/procedure; 10/19/19; 1306 10/19/19 1119 by Stacey Pardo RN 10/19/19 1306 by Cheryl Luis RN ETT Mask Ventilation: Ea sy (1); ETT Type: Cuffed, Oral; ETT Size: 7 mm; Mac Blade: 3; Notes: Asleep, Pre-O2, Stylette; Attempts: 1; Laryngoscopy Grade: 1; Secured at Teeth: 24 cm; Inserted by: Jasmina; Removal Date: 10/19/19; Removal Time: 1204 10/19/19 1140 by Albert Freedman MD 10/19/19 1204 by Denisse Hoffmann CRNA Incision 10/19/19; 1143; nost ril; 07/13/22 (LDA cleanup utility RA#[id number]); 1715 (LDA cleanup utility RA#[id number]) 10/19/19 1143 by Sissy Rasmussen RN 07/13/22 1715 by Isiah Shirley documented in this encounter Social History Tobacco Use Types Packs/Day Years Used Date Smoking Tobacco: Never Smokeless Tobacco: Never Comments:No ets Sex and Gender Information Value Date Recorded Sex Assigned at Not on file Gender Identity Not on file Sexual Orientation Not on file documented as of this encounter OR Notes * Anesthesia Postprocedure Evaluation - Albert Freedman MD - 10/19/2019 1:43 PM EST Department of Anesthesiology Post-procedure Note Patient: Luciana Sinclair Procedure Summary Date: 10/19/19 Room / Location: [address] Anesthesia Start: 1129 Anesthesia Stop: 1210 Procedures: SEPTOPLASTY OR SMR, W/ OR W/O CARTILAGE SCORING, CONTOURING OR REPLACEMENT W/ GRAFT (WRVU 7.01) (N/A Nose) ABLATION INFERIOR TURBINATE, SUPERFICIAL (WRVU 1.14) (Bilateral Nose) Diagnosis: DNS (deviated nasal septum) Nasal turbinate hypertrophy (deviated nasal septum) Surgeon: Angel Luis Man III, MD Responsible Provider: Vivek Jade MD Anesthesia Type: general ASA Status: 2 All Anesthesia Providers: Anesthesiologist: Vivek Jade MD [employer] Systems Engineer: Albert Freedman MD Vitals Value Taken Time BP 137/84 10/19/2019 1:04 PM Temp 36.5 ??C (97.7 ??F) 10/19/2019 12:09 PM Pulse 69 10/19/2019 1:04 PM Resp 18 10/19/2019 1:04 PM SpO2 99 % 10/19/2019 1:04 PM Pain Level 0 10/19/2019 1:04 PM Patient Location: PACU/[facility] Level of Consciousness: Awake and Alert Pain Management: Satisfactory Analgesia PONV: PONV Resolved with Rx Cardiovascular Status: Hemodynamically Stable Respiratory Status: Stable Respiratory Status Postoperative Fluid Status: Intravascular EUvolemia Possible Anesthetic Complications: NONE apparent at time of evaluation Final Primary Anesthesia Type: General (The anesthetic type performed was the same as planned.) Comments: * Anesthesia Preprocedure Evaluation - Vivek Jade MD - 10/18/2019 2:58 PM EST Pre-Anesthesia Evaluation for: Luciana Sinclair a 39 y.o. female. Procedure(s): SEPTOPLASTY OR SMR, W/ OR W/O CARTILAGE SCORING, CONTOURING OR REPLACEMENT W/ GRAFT (WRVU 7.01) ABLATION INFERIOR TURBINATE, SUPERFICIAL (WRVU 1.14) There are no active problems to display for this patient. Past Medical History: Diagnosis Date ??? Allergic rhinitis ??? Asthma ??? Eczema ??? Hypothyroidism No past surgical history on file. Social History Tobacco Use ??? Smoking status: Never Smoker ??? Smokeless tobacco: Never Used ??? Tobacco comment: No ets Substance Use Topics ??? Alcohol use: Not on file Social History Substance and Sexual Activity Drug Use Never No Known Allergies Medications: MAR and/or home medications have been reviewed. Physical Exam: There were no vitals filed for this visit. There is no height or weight on file to calculate BMI. Airway Assessment: Mallampati: I TM distance: >3 FB Neck ROM: full Cardiovascular Assessment: cardiovascular exam normal Pulmonary Assessment: pulmonary exam normal Dental Assessment: Misc Assessment: Patient is wearing No contact(s). IV access: Peripheral line Anesthesia Plan: ASA 2 general, with a(n) intravenous induction Luciana Sinclair is a 39 y.o. female with a hx significant for hypothyroidism, asthma, and a deviated nasal septum presenting for the following procedure(s): Procedure(s): SEPTOPLASTY OR SMR, W/ OR W/O CARTILAGE SCORING, CONTOURING OR REPLACEMENT W/ GRAFT (WRVU 7.01) ABLATION INFERIOR TURBINATE, SUPERFICIAL (WRVU 1.14) Allergies: No Known Allergies Anesthesia Hx: None on file in eDH NPO status: adequate Pt activity level prior to surgery/admission to hospital: METs > 4 Labs: No results for input(s): WBC, HGB, HCT, PLATELET in the last 7068 hours. No results for input(s): NA, K, CL, CO2, BUN, CREATININE in the last 7068 hours. No results for input(s): AST, ALT, ALKPHOS, BILITOT, BILIDIR in the last 7068 hours. No results for input(s): PT, INR, PTT in the last 168 hours. No results found for: ABORH Plan is for GA with ETT/LMA, standard ASA monitors, and adequate IV access. Albert Freedman MD PGY4 (CA-3), Plant Floor Automation Manager Pager #[phone] Region - Other Informed Consent: Anesthetic plan and risks discussed with patient. Plan discussed with resident and attending. PAT Clinic Note documented in this encounter Plan of Treatment Not on file documented as of this encounter Visit Diagnoses Not on filedocumented in this encounter Administered Medications Inactive Administered Medications - up to 3 most recent administrations Medication Order MAR Action Action Date Dose Rate Site dexamethasone (DECADRON) injection PRN, Starting on Mela 10/19/19 at 1133, Until Mela 10/19/19 at 1212, Anesthesia Intra-op, Routine Given 10/19/2019 11:33 AM EST 4 mg fentaNYL 50 mcg/mL multi-dose injection PRN, Starting on Mela 10/19/19 at 1129, Until Mela 10/19/19 at 1212, Anesthesia Intra-op, Routine Given 10/19/2019 11:39 AM EST 50 mcg Given 10/19/2019 11:29 AM EST 50 mcg lactated ringers infusion 1,000 mL, at 100 mL/hr, Intravenous, CONTINUOUS, Starting on Mela 10/19/19 at 1115, Until Mela 10/19/19 at 1523, Day of Surgery (Day of Procedure) New Bag 10/19/2019 11:29 AM EST New Bag 10/19/2019 11:20 AM EST 1,000 mLs 100 mL/hr lidocaine (PF) (XYLOCAINE) 100 mg/5 mL (2 %) injection PRN, Starting on Mela 10/19/19 at 1132, Until Mela 10/19/19 at 1212, Anesthesia Intra-op, Routine Given 10/19/2019 11:32 AM EST 80 mg midazolam (PF) (VERSED) multi-dose injection PRN, Starting on Mela 10/19/19 at 1129, Until Mela 10/19/19 at 1212, Anesthesia Intra-op, Routine Given 10/19/2019 11:29 AM EST 2 mg ondansetron (ZOFRAN) injection PRN, Starting on Mela 10/19/19 at 1156, Until Mela 10/19/19 at 1212, Anesthesia Intra-op, Routine Given 10/19/2019 11:56 AM EST 4 mg propofol (DIPRIVAN) 10 mg/mL bolus injection (Anesthesia) PRN, Starting on Mela 10/19/19 at 1132, Until Mela 10/19/19 at 1212, Anesthesia Intra-op Given 10/19/2019 11:58 AM EST 30 mg Given 10/19/2019 11:32 AM EST 150 mg succinylcholine chloride (Quelicin) injection PRN, Starting on Mela 10/19/19 at 1133, Until Mela 10/19/19 at 1212, Anesthesia Intra-op, Routine Given 10/19/2019 11:33 AM EST 80 mg documented in this encounter Care Teams Sales Property Manager Relationship Specialty Start Date End Date Lucio Barksdale DO [address] [place] [address] PCP - General Family Medicine 04/11/19 documented as of this encounter
--- OUTSIDE RECORDS SUMMARY | 2024-12-19 00:20 | XMS_ITS | Referral Summary ---
Author Organization [facility] Address [address] [place] [address] Care Team Providers Care Email Manager Name Role Phone Eric Lozoya MD Primary Care Provider [phone] Immunizations Name Administration Dates Next Due Historical Influenza Vaccine, Unspecified 2021 Social History Tobacco Use Types Packs/Day Years Used Date Smoking Tobacco: Never Assessed Comments Unknown Sex and Gender Information Value Date Recorded Sex Assigned at Not on file Legal Sex Female 18:38 EST Gender Identity Not on file Sexual Orientation Not on file Plan of Treatment Not on file Procedures Procedure Name Priority Date/Time Associated Diagnosis Comments HEPATITIS C AB W REFLEX TO HCV RNA BY PCR Routine 02/23/2023 16:43 EDT from Last 3 Months or Most Recently Relevant to Health Maintenance Results * HEPATITIS C AB W REFLEX TO HCV RNA BY PCR (02/23/2023 16:43 EDT) Hep C Antibody Negative Negative 02/25/2023 10:00 EDT [facility] Blood VENOUS BLOOD / Unknown 02/23/2023 16:43 EDT 02/24/2023 16:59 EDT us Provider Outr Resulting Lab CHEMISTRY & BLOOD GA S ORDERABLES Final Result [facility] [address] [place] [address] from Last 3 Months or Most Recently Relevant to Health Maintenance Care Teams Email Manager Relationship Specialty Start Date End Date Eric Lozoya MD [address] [place] [phone] [facility] - General 09/25/15
--- OUTSIDE RECORDS SUMMARY | 2024-12-19 00:20 | XMS_ITS | Encounter Summary ---
Author Organization [facility] Address [address] [place] [address] Care Team Providers Care Carbide Powder Processor Name Role Phone Eric Lozoya MD Primary Care Provider [phone] Encounter Details Date Type Department Care Team (Late st Contact Info) Description 02/23/2023 Lab Requisition [facility] Pathology & Laboratory Medicine - [facility] [address], [place] [address] Outr Resulting Lab, Provider Social History Tobacco Use Types Packs/Day Years [...] RNA BY PCR Routine 02/23/2023 16:43 EDT documented in this encounter Results * HEPATITIS C AB W REFLEX TO HCV RNA BY PCR (02/23/2023 16:43 EDT) Hep C Antibody Negative Negative 02/25/2023 10:00 EDT [facility] Blood VENOUS BLOOD / Unknown 02/23/2023 16:43 EDT 02/24/2023 16:59 EDT us Provider Outr Resulting Lab CHEMISTRY & BLOOD GA S ORDERABLES Final Result [facility] [address] [place] [address] documented in this encounter Visit Diagnoses Not on filedocumented in this encounter Care Teams Carbide Powder Processor Relationship Specialty Start Date End Date Eric Lozoya MD [address] [place] [phone] PCP - General 09/25/15 documented as of this encounter
--- OUTSIDE RECORDS SUMMARY | 2024-12-19 00:20 | XMS_ITS | Encounter Summary ---
[place] [address] Care Team Providers Care Open Claims Representative Name Role Phone ShamirLucio burgos Primary Care Provider Reason for Referral * Consultation (Routine) - Closed Specialty Diagnoses / Procedures Referred By Zachary miramontes Referred To Contact Otolaryngology Diagnoses Nasal congestion Katie Pinon MD [facility] [address] [place] [address] Angel Luis Man III, MD [facility] [place] [address] Referral ID Status Reason Start Date Expiration Date V isits Requested Visits Authorized [id number] Closed Consult, Test & Treat 07/31/2019 07/30/2020 1 1 Encounter Details Date Type Department Care Team (Late st Contact Info) Description 07/31/2019 8:30 AM EDT [place] [address] Katie Pinon MD [facility] [address] [place] [address] Nasal congestion; Allergic rhinitis, unspecified seasonality, unspecified trigger Social History Tobacco Use Types Packs/Day Years Used Date Smoking Tobacco: Never Smokeless Tobacco: Never Comments:No ets Sex and Gender Information Value Date Recorded Sex Assigned at Not on file Gender Identity Not on file Sexual Orientation Not on file documented as of this encounter Last Filed Vital Signs Vital Sign Reading Time Taken Comments Blood Pressure 137/88 07/31/2019 8:12 AM EDT Pulse 74 07/31/2019 8:12 AM EDT Temperature - - Respiratory Rate - - Oxygen Saturation 100% 07/31/2019 8:12 AM EDT Inhaled Oxygen Concentration - - Weight 78.5 kg (173 lb) 07/31/2019 8:12 AM EDT Height 160 cm (5' 3) 07/31/2019 8:12 AM EDT Body Mass Index 30.65 07/31/2019 8:12 AM EDT documented in this encounter Patient Instructions * Patient Instructions* Katie Pinon MD - 07/31/2019 8:30 AM EDT Allergy testing positive to dust mites and cat. Continue flonase. Stop azelastine. Start singulair 10mg at night See ENT Return in 6 months to discuss other treatment options Dust Mites: - get allergen zip covers for mattress, box spring, and pillows - wash sheets in hot water once a week - keep humidity down in house between 30 - 50% - reduce unnecessary upholstery in the bedroom (decorative pillows and blankets, curtains, high pile rugs and carpeting) - keep bed open or undone during the day - use a HEPA filter in your central furnace and A/C if you have one Animals: - keep pets out of the bedroom; if possible, restrict them to only 1-2 rooms in the home - avoid clutter and high pile rugs and carpet that can hold onto pet allergens - wear a mask when you vacuum - wash hands after touching pets - get allergen zip covers for the mattress and pillows - these can prevent build-up of pet allergens in the bed - wash sheets on high heat once a week - use HEPA filter vacuum when cleaning the home - use a HEPA filter in your central furnace and A/C if you have one documented in this encounter Progress Notes * Katie Pinon MD - 07/31/2019 8:30 AM EDT CC: follow up HPI: Luciana Sinclair is a 39 y.o. female with PMH hypothyroidism presenting for follow up of allergies. She was last seen on June 26, 2019 which was my first visit with her. She was reporting nasal congestion, worse at night, accompanied by cough and phlegm. Symptoms significantly worse sincea sinus infection 5 to 6 months previously. History of allergy symptoms since childhood and past triggers included cats, dust, ragweed. Also with mild intermittent asthma with recent worsening. I recommended she return for allergy testing off cetirizine, sent in azelastine nasal spray to try, and anew albuterol inhaler to use as needed. Since her last visit she reports that the azelastine did not help and Flonase not helping either. Only oral steroids have been helpful. Nasal congestion continues to be severe and unrelenting. She has not seen ENT. She is here for skin testing today ROS: per HPI, otherwise negative. There is no problem list on file for this patient. Past Medical History: Diagnosis Date ??? Allergic rhinitis ??? Asthma ??? Eczema ??? Hypothyroidism Outpatient Medications Marked as Taking for the 07/31/19 encounter (Office Visit) with Katie Pinon MD Medication Sig Dispense Refill ??? cetirizine (ZYRTEC) 10 mg Tablet ??? levothyroxine (SYNTHROID) 75 mcg Tablet ??? triamcinolone (KENALOG) 0.1 % Cream ??? albuterol 90 mcg/actuation HFA Aerosol Inhaler Inhale 2 puffs into the lungs every 4 hours as needed for Wheezing. 1 Inhaler 1 ??? azelastine (ASTELIN) 137 mcg (0.1 %) Aerosol, [place] 2 sprays in each nostril BID 30 mL 11 ??? CIS Free Text Med - Albuterol ??? MOMETASONE FUROATE (NASONEX NASL) ??? fexofenadine (JEFF) 180 mg tablet PHYSICAL EXAM: BP 137/88 Pulse 74 Ht 160 cm (5' 3) Wt 78.5 kg (173 lb) SpO2 100% BMI 30.65 kg/m?? Gen: AAOx3, no acute distress SKIN TESTING Histamine (10, 25) Saline (2, 5) Glycerine (3, 5) Standard panel of 41 trees, grasses, weeds, molds, dust mite, cat, dog, mouse, and cockroach positive only to DMP, DMF (large positives) and cat. Standard environmental skin prick testing panel includes: dust mite p, dust mite f, cat, dog, AP dog, cockroach, [place] grass, [place] bluegrass, orchard grass, Trevin grass, Bermuda grass, [place],ad[place], birch, black walnut tree, cedar, elm, [place], maple tree, oak, pine, [place], [place], cocklebur, mugwort, pigweed, ragweed, sheep [place], plantain, Aspergillus mix, Alternaria, penicillium, Cladosporium, Helminthosporium, Curvularia, epicoccum, Fusarium, Mucor, stemphyllium, Aspergillus fumigatus, mouse. ASSESSMENT/PLAN: 39 y.o. female with allergic rhinitis and severe nasal congestion. Allergy testing positive to dustmites and cat, which were prior triggers in past. Nothing new identified despite recent worsening. AR: - Continue flonase. - Stop azelastine. - Start singulair 10mg at night - See ENT to eval for nasal polyps due to severe nasal congestion, as this would job change crew member Asthma: cont albuterol prn Return in 6 months to discuss other treatment options (potentially allergy shots) Katie Pinon MD documented in this encounter Plan of Treatment Scheduled Referrals Name Type Priority Associated Diagnoses Orde r Schedule Referral to ENT Outpatient Referral Routine Nasal congestion Ordered: 07/31/2019 documented as of this encounter Visit Diagnoses Diagnosis Nasal congestion Other diseases of nasal cavity and sinuses Allergic rhinitis, unspecified seasonality, unspecified trigger documented in this encounter Care Teams Open Claims Representative Relationship Specialty Start Date End Date Lucio Barksdale DO [address] [place] [address] PCP - General Family Medicine 04/11/19 documented as of this encounter
--- OUTSIDE RECORDS SUMMARY | 2024-12-19 00:20 | XMS_ITS | Encounter Summary ---
Author [facility] [place] [address] Care Team Providers Care Data Programmer Name Role Phone ShamirLucio burgos Primary Care Provider Reason for Visit * Reason Comments Post Op can breathe again Encounter Details Date Type Department Care Team (Late st Contact Info) Description 10/27/2019 11:30 AM EST Office [place] [address] Angel Luis Man III, MD [facility] [place] [address] DNS (deviated nasal septum) Social History Tobacco Use Types Packs/Day Years Used Date Smoking Tobacco: Never Smokeless Tobacco: Never Comments:No ets Sex and Gender Information Value Date Recorded Sex Assigned at Not on file Gender Identity Not on file Sexual Orientation Not on file documented as of this encounter Progress Notes * Angel Luis Man III, MD - 10/27/2019 11:30 AM EST Luciana returns for splint removal which was easily accomplished. Her airways are excellent bilaterally and she is delighted with the result. Routine precautions were explained. She will continue nasal saline spray until we see her again for final check in 8 weeks time. documented in this encounter Plan of Treatment Not on file documented as of this encounter Visit Diagnoses Diagnosis DNS (deviated nasal septum) Deviated nasal septum documented in this encounter Care Teams Data Programmer Relationship Specialty Start Date End Date Lucio Barksdale DO [address] [place] [address] PCP - General Family Medicine 04/11/19 documented as of this encounter
--- OUTSIDE RECORDS SUMMARY | 2024-12-19 00:20 | XMS_ITS | Encounter Summary ---
[place] [address] Care Team Providers Care Patching Machine Operator Name Role Phone Lucio Barksdale DO Primary Care Provider [phone] Encounter Details Date Type Department Care Team (Late st Contact Info) Description 09/08/2019 Tele[place] [phone] Mich Arellano Social History Tobacco Use Types Packs/Day Years Used Date Smoking Tobacco: Never Smokeless Tobacco: Never Comments:No ets Sex and Gender Information Value Date Recorded Sex Assigned at Not on file Gender Identity Not on file Sexual Orientation Not on file documented as of this encounter Miscellaneous Notes * Telephone Encounter - Mich Arellano - 09/08/2019 10:12 AM EDT PATIENT CALLED TO R/S CASE FROM 09/21 TO 10/19 NO FOLLOWUP INDICATED IN SURGICAL ORDER documented in this encounter Plan of Treatment Not on file documented as of this encounter Visit Diagnoses Not on filedocumented in this encounter Care Teams Patching Machine Operator Relationship Specialty Start Date End Date Lucio Barksdale DO [address] [place], [place] [phone] PCP - General Family Medicine 04/11/19 documented as of this encounter
--- OUTSIDE RECORDS SUMMARY | 2024-12-19 00:20 | XMS_ITS | Encounter Summary ---
[place] [address] Care Team Providers Care Superintendent Maintenance Name Role Phone Lucio Barksdale DO Primary Care Provider [phone] Encounter Details Date Type Department Care Team (Late st Contact Info) Description 06/26/2019 2:45 PM EDT [place] [address] Social History Tobacco Use Types Packs/Day Years [...] on filedocumented in this encounter Care Teams Superintendent Maintenance Relationship Specialty Start Date End Date Lucio Barksdale DO [address] [place], [place] [phone] PCP - General Family Medicine 04/11/19 documented as of this encounter
--- OUTSIDE RECORDS SUMMARY | 2024-12-19 00:20 | XMS_ITS | Encounter Summary ---
[place] [address] Care Team Providers Care Physical Education Professor Name Role Phone Lucio Barksdale DO Primary Care Provider [phone] Encounter Details Date Type Department Care Team (Late st Contact Info) Description 08/07/2019 Telephone [place] [phone] Shelley Billy Social History Tobacco Use Types Packs/Day Years Used Date Smoking Tobacco: Never Smokeless Tobacco: Never Comments:No ets Sex and Gender Information Value Date Recorded Sex Assigned at Not on file Gender Identity Not on file Sexual Orientation Not on file documented as of this encounter Miscellaneous Notes * Telephone Encounter - Shelley Hayes - 08/07/2019 12:14 PM EDT Lmx2 for patient to call back and schedule appointment from referral. documented in this encounter Plan of Treatment Not on file documented as of this encounter Visit Diagnoses Not on filedocumented in this encounter Care Teams Physical Education Professor Relationship Specialty Start Date End Date Lucio Barksdale DO [address] [place], [place] [phone] PCP - General Family Medicine 04/11/19 documented as of this encounter
--- OUTSIDE RECORDS SUMMARY | 2024-12-19 00:20 | XMS_ITS | Encounter Summary ---
[place] [address] Care Team Providers Care Dynamite Packing Machine Feeder Name Role Phone Lucio Barksdale DO Primary Care Provider Encounter Details Date Type Department Care Team (Late st Contact Info) Description 08/02/2019 Telephone [place] [phone] Shelley Billy Social History Tobacco Use Types Packs/Day Years Used Date Smoking Tobacco: Never Smokeless Tobacco: Never Comments:No ets Sex and Gender Information Value Date Recorded Sex Assigned at Not on file Gender Identity Not on file Sexual Orientation Not on file documented as of this encounter Miscellaneous Notes * Telephone Encounter - Shelley Hayes - 08/02/2019 10:25 AM EDT Left message for patient to call back to schedule from referral. documented in this encounter Plan of Treatment Not on file documented as of this encounter Visit Diagnoses Not on filedocumented in this encounter Care Teams Dynamite Packing Machine Feeder Relationship Specialty Start Date End Date Lucio Barksdale DO [address] [place], [place] [phone] PCP - General Family Medicine 04/11/19 documented as of this encounter
--- OUTSIDE RECORDS SUMMARY | 2024-12-19 00:20 | XMS_ITS | Encounter Summary ---
[facility] [place] [address] Care Team Providers Care Communications Media Professor Name Role Phone Lucio Barksdale DO Primary Care Provider Reason for Visit * Reason Comments Establish Care sinusitis x 1 yr * Consultation (Routine) - Closed Specialty Diagnoses / Procedures Referred By Contyasmeen t Referred To Contact Otolaryngology Diagnoses Nasal congestion Katie Pinon MD [facility] [address] [place] [address] Angel Luis Man III, MD [facility] [place] [address] Referral ID Status Reason Start Date Expiration Date V isits Requested Visits Authorized [id number] Closed Consult, Test & Treat 07/31/2019 07/30/2020 1 1 Encounter Details Date Type Department Care Team (Late st Contact Info) Description 08/23/2019 11:00 AM EDT Office Visit [place] [phone] Anegl Luis Man III, MD [facility] [place] [address] DNS (deviated nasal septum); Chronic allergic rhinitis; Nasal turbinate hypertrophy Social History Tobacco Use Types Packs/Day Years Used Date Smoking Tobacco: Never Smokeless Tobacco: Never Comments:No ets Sex and Gender Information Value Date Recorded Sex Assigned at Not on file Gender Identity Not on file Sexual Orientation Not on file documented as of this encounter Last Filed Vital Signs Vital Sign Reading Time Taken Comments Blood Pressure 128/84 08/23/2019 11:01 AM EDT Pulse 77 08/23/2019 11:01 AM EDT Temperature 36.6 ??C (97.8 ??F) 08/23/2019 11:01 AM E DT Respiratory Rate - - Oxygen Saturation 94% 08/23/2019 11:01 AM EDT Inhaled Oxygen Concentration - - Weight 78 kg (172 lb) 08/23/2019 11:01 AM EDT Height 160 cm (5' 3) 08/23/2019 11:01 AM EDT Body Mass Index 30.47 08/23/2019 11:01 AM EDT documented in this encounter Progress Notes * Angel Luis Man III, MD - 08/23/2019 11:00 AM EDT Otolaryngology Outpatient Consultation Note This note created with [employer] speech recognition software. Date of Visit: 08/23/2019 Location of Visit: Otolaryngology Clinic, [facility] Patient: Luciana Sinclair ([id number]; 1980) Primary Care Provider: Lucio Barksdale DO Referring Provider: Katie Pinon Reason for Visit: Luciana is a 39 y.o. female seen at the request of Katie Pinon in consultation for nasal congestion, and to evaluate for polyps. History of Present Illness: Luciana reports a many year history of nasal congestion, often worse at night. Recent allergy testing revealed allergies to cats and dust mites. Over the last year the obstruction has been worse. She does not recall a nasal injury. Past Medical History: Past Medical History: Diagnosis Date ??? Allergic rhinitis ??? Asthma ??? Eczema ??? Hypothyroidism Past Surgical History: No past surgical history on file. Medications: Current Outpatient Medications on File Prior to Visit Medication Sig Dispense Refill ??? montelukast (SINGULAIR) 10 mg Tablet Take 1 tablet by mouth nightly. 30 tablet 12 ??? cetirizine (ZYRTEC) 10 mg Tablet ??? levothyroxine (SYNTHROID) 75 mcg Tablet ??? albuterol 90 mcg/actuation HFA Aerosol Inhaler Inhale 2 puffs into the lungs every 4 hours as needed for Wheezing. 1 Inhaler 1 ??? azelastine (ASTELIN) 137 mcg (0.1 %) Aerosol, [place] 2 sprays in each nostril BID 30 mL 11 ??? MOMETASONE FUROATE (NASONEX NASL) ??? triamcinolone (KENALOG) 0.1 % Cream ??? CIS Free Text Med - Albuterol ??? NORGESTIMATE-ETHINYL ESTRADIOL (ORTHO TRI-CYCLEN, 28, ORAL) (Patient not taking: No sig reported) ??? fexofenadine (JEFF) 180 mg tablet (Patient not taking: No sig reported) No current facility-administered medications on file prior to visit. Allergies: Patient has no known allergies. Social History: [place] [address], Tobacco:No Alcohol:No Other: Immunizations UTD. Family History: Family History Problem Relation Age of Onset ??? Allergic Rhinitis Father Review of Systems: Pertinent positive findings discussed above. No other findings on review of constitutional, visual, cardiovascular, respiratory, gastrointestinal, genitourinary, musculoskeletal, dermatologic, neurological, psychiatric, endocrine, hematologic or immunologic systems. Physical Examination: Vitals: Blood pressure 128/84, pulse 77, temperature 36.6 ??C (97.8 ??F), height 160 cm (5' 3), weight 78 kg (172 lb), SpO2 94 %. General: No acute distress. Face: Full and symmetric facial movement. No dysmorphic facial features. Eyes: Periocular structures and conjunctiva healthy without lesions. Pupils are equal, round, and reactive to light. Extraocular movement is full and intact. No dysconjugate gaze. No evidence of nystagmus. Ears: Auricles symmetric without lesions. External auditory canals clear. Right tympanic membrane normal, right middle ear normal. Left tympanic membrane normal, left middle ear normal. Nose: Patent anteriorly with adequate airflow, healthy pink mucosa. Septum is deviated in S fashion. Inferior turbinates hypertrophic. Mouth: Lips and gingiva pink, moist, without lesions. Dentition healthy. Tongue and floor of mouth soft without lesions or masses. Hard palate without lesions. Pharynx: Soft palate without lesions. Uvula is intact. Oropharynx symmetric. Larynx: Vocal mobility and morphology normal. Neck: Soft, supple, without significant lymphadenopathy. Thyroid gland without masses or asymmetry.Trachea midline without deviation. Lymphatic: Negative for additional peripheral lymphadenopathy or lymphedema. Neurologic: Cranial nerves II-XII intact and symmetric. Procedure - Nasal Endoscopy Topical anesthetic applied to the nasal cavity. Patient tolerated the procedure well without complication. Findings: Nasal Cavity: Deviated nasal septum with obstruction, no polyps, turbinate hypertrophy, especially on the left. Nasopharynx: Normal Impression: Deviate nasal septum and enlarged turbinates. Recommendations: Clearly she would benefit from surgery in the form of septoplasty and turbinate reduction.The risks and benefits of the surgery were reviewed with the patient including in particularpain, bleeding, infection, scarring, and the possible need for additional surgery. All questions were answered to the patient's satisfaction, she appears to comprehend, will consider, and will call if she decides to proceed. documented in this encounter Plan of Treatment Not on file documented as of this encounter Procedures Procedure Name Priority Date/Time Associated Diagnosis Comments ABLATION INFERIOR TURBINATE, SUPERFICIAL Routine 08/23/2019 11:53 AM EDT Nasal turbinate hypertrophy SEPTOPLASTY OR SMR W/ OR W/O CARTILAGE SCOR CONTOUR OR REPLACE W/ GRFT Routine 08/23/2019 11:53 AM EDT DNS (deviated nasal septum) documented in this encounter Visit Diagnoses Diagnosis DNS (deviated nasal septum) Deviated nasal septum Chronic allergic rhinitis Allergic rhinitis, cause unspecified Nasal turbinate hypertrophy Hypertrophy of nasal turbinates documented in this encounter Care Teams Communications Media Professor Relationship Specialty Start Date End Date Lucio Barksdale DO [address] [place] [address] PCP - General Family Medicine 04/11/19 documented as of this encounter
--- OUTSIDE RECORDS SUMMARY | 2024-12-19 00:20 | XMS_ITS | Encounter Summary ---
Author Organization [facility] [place] [address] Care Team Providers Care Director Stars Name Role Phone Lucio Barksdale DO Primary Care Provider [phone] Reason for Visit * Reason Comments Allergies * Consultation (Routine) - Closed Specialty Diagnoses / Procedures Referred By Zachary miramontes Referred To Contact Allergy Diagnoses CHRONIC RHINITIS Lucio Barksdale DO [address] [place] [address] [facility] All[facility] [address] [place] [phone] Referral ID Status Reason Start Date Expiration Date V isits Requested Visits Authorized [id number] Closed Consult, Test & Treat Connection Center 04/11/2019 04/10/2020 1 1 Encounter Details Date Type Department Care Team (Late st Contact Info) Description 06/26/2019 3:00 PM EDT [place] [address] Katie Pinon MD [facility] [address] [place] [address] Allergic rhinitis, unspecified seasonality, unspecified trigger; Mild intermittent asthma without complication Social History Tobacco Use Types Packs/Day Years Used Date Smoking Tobacco: Never Smokeless Tobacco: Never Comments:No ets Sex and Gender Information Value Date Recorded Sex Assigned at Not on file Gender Identity Not on file Sexual Orientation Not on file documented as of this encounter Last Filed Vital Signs Vital Sign Reading Time Taken Comments Blood Pressure 143/95 06/26/2019 2:47 PM EDT Pulse 93 06/26/2019 2:47 PM EDT Temperature - - Respiratory Rate - - Oxygen Saturation 99% 06/26/2019 2:47 PM EDT Inhaled Oxygen Concentration - - Weight 78.5 kg (173 lb) 06/26/2019 2:47 PM EDT Height 160 cm (5' 3) 06/26/2019 2:47 PM EDT Body Mass Index 30.65 06/26/2019 2:47 PM EDT documented in this encounter Patient Instructions * Patient Instructions* Katie Pinon MD - 06/26/2019 3:00 PM EDT Return for allergy testing off cetirizine for 72 hours. OK to use nasal sprays and inhalers. Sent in new albuterol inhaler to try as needed Try azelastine 2 sprays in each nostril at night before bed. Take in addition to your flonase. documented in this encounter Progress Notes * Katie Pinon MD - 06/26/2019 3:00 PM EDT CC: allergies HPI: Luciana Sinclair is a pleasant 39 y.o. female with a PMH of hypothyroidism presenting for evaluation of allergy sx at the request of Lucio Barksdale. Complains of very stuffy nose, worse lately, cristi at night. States that 5 to 6 months ago she had a sinus infection and her nasal symptoms never went back to normal after this. Also complains of coughat night and more phlegm in her throat. The cough at night has been occurring for a couple weeks now and occurs every night, when she first goes to bed. She states that she has had allergy symptoms since she was a kid. In the past triggers have included cats, dust, and ragweed. Symptoms were year-round and worse in the spring, summer, fall, but this winter she started having bad symptoms. She states her nose is never not stuffy now. She also states that her throat and eyes are mildly itchy, shehas occasional sneezing, but has not noticed any postnasal drip or rhinorrhea. She has not noticed noticed any loss of her sense of smell or taste. She takes cetirizine every day and thinks she took it yesterday. Uses Flonase Sensimist [id number] which helps a little. She has a history of asthma, mostly exercise-induced but recently has had symptoms at night. She uses very old albuterol inhaler which helps with wheezing, but not cough. She states that she was never uses the inhaler and that is why it is so old. ROS is per HPI otherwise negative. ENVIRONMENTAL HISTORY Occupation: middle school pe teacher at [employer] Exposed to chemicals or hazardous fumes at work: n Type of home: house Heating system: hot water Central A/C: n Wood stove: y Pests inside home: mice Known mold, mildew, or water damage: n Pets: 1 cat for 10y Farm animals on property: n but exposed to cows, chickens She has lived in this area for 13 to 14 years. She changed her job last year in April. She sometimesuses the air conditioning and sometimes has a window open, but has not noticed any pattern with this. There is no problem list on file for this patient. Past Medical History: Diagnosis Date ??? Asthma ??? Eczema ??? Hypothyroidism History reviewed. No pertinent surgical history. ??? cetirizine (ZYRTEC) 10 mg Tablet ??? levothyroxine (SYNTHROID) 75 mcg Tablet ??? triamcinolone (KENALOG) 0.1 % Cream ??? CIS Free Text Med - Albuterol ??? MOMETASONE FUROATE (NASONEX NASL) ??? fexofenadine (JEFF) 180 mg tablet ??? albuterol 90 mcg/actuation HFA Aerosol Inhaler ??? azelastine (ASTELIN) 137 mcg (0.1 %) Aerosol, [place] ??? NORGESTIMATE-ETHINYL ESTRADIOL (ORTHO TRI-CYCLEN, 28, ORAL) No Known Allergies Family History Problem Relation Age of Onset ??? Allergic Rhinitis Father Social History Socioeconomic History ??? Marital status: Spouse name: Not on file ??? Number of children: Not on file ??? Years of education: Not on file ??? Highest education level: Not on file Occupational History ??? Not on file Social Needs ??? Financial resource strain: Not on file ??? Food insecurity: Worry: Not on file Inability: Not on file ??? Transportation needs: Medical: Not on file Non-medical: Not on file Tobacco Use ??? Smoking status: Never Smoker ??? Smokeless tobacco: Never Used ??? Tobacco comment: No ets Substance and Sexual Activity ??? Alcohol use: Not on file ??? Drug use: Never ??? Sexual activity: Not on file Lifestyle ??? Physical activity: Days per week: Not on file Minutes per session: Not on file ??? Stress: Not on file Relationships ??? Social connections: Talks on phone: Not on file Gets together: Not on file Attends hinduism service: Not on file Active member of club or organization: Not on file Attends meetings of clubs or organizations: Not on file Relationship status: Not on file ??? Intimate partner violence: Fear of current or ex partner: Not on file Emotionally abused: Not on file Physically abused: Not on file Forced sexual activity: Not on file Other Topics Concern ??? Not on file Social History Narrative ??? Not on file PHYSICAL EXAM: BP (!) 143/95 Pulse 93 Ht 160 cm (5' 3) Wt 78.5 kg (173 lb) SpO2 99% BMI 30.65 kg/m?? Gen: AAOx3, no acute distress HEENT: Tympanic membranes clear, no lesions, erythema, or drainage. Conjunctiva not injected. Nasalpassages show pink turbinates bilaterally. OP clear without erythema or cobblestoning. NECK: supple, no lymphadenopathy CVS: RRR, no m/r/g LUNGS: CTAB, no wheezing or rales ABD: soft, non-tender, non-distended SKIN: no rashes EXTREMITIES: warm and well-perfused, no edema SPIROMETRY: Bedside spirometry was performed today, which I personally reviewed. It was normal and with no evidence of obstruction or restriction. FVC 112% pred FEV1 117% pred FEV1/FVC 86% ASSESSMENT AND PLAN: 39 y.o. female with allergic rhinitis, mild intermittent well controlled but with recent worsening.Unable to skin test today due to recent antihistamine use. Return for allergy testing off cetirizine for 72 hours. OK to use nasal sprays and inhalers. Asthma: - Sent in new albuterol inhaler to try as needed AR: - Try azelastine 2 sprays in each nostril at night before bed. Take in addition to flonase. - RTO skin testing to identify new triggers Katie Pinon MD documented in this encounter Plan of Treatment Not on file documented as of this encounter Procedures Procedure Name Priority Date/Time Associated Diagnosis Comments PFT SCAN 06/26/2019 12:00 AM EDT documented in this encounter Results * SCAN DOC: PFT (06/26/2019 12:00 AM EDT) Narrative 06/26/2019 12:00 AM EDT Ordered by an unspecified provider. Scanning Provider MEDIA MGR SCAN EXT O RDR/RSLT documented in this encounter Visit Diagnoses Diagnosis Allergic rhinitis, unspecified seasonality, unspecified trigger Mild intermittent asthma without complication Unspecified asthma documented in this encounter Care Teams Director Stars Relationship Specialty Start Date End Date Lucio Barksdale DO [address] [place] [address] PCP - General Family Medicine 04/11/19 documented as of this encounter
--- OUTSIDE RECORDS SUMMARY | 2024-12-19 00:21 | XMS_ITS | Encounter Summary ---
Author Organization [facility] Address [address] [place] [address] Care Team Providers Care Dye Range Feeder Name Role Phone Unavailable Primary Care Provider Unavailabl e Encounter Details Date Type Department Care Team (Late st Contact Info) Description 12/27/2014 Results Only [facility] [phone] Lubna Centeno, [facility] [address] [place] [address] Social History Tobacco Use Types Packs/Day Years [...] Procedure Name Priority Date/Time Associated Diagnosis Comments PAP TEST- RESULT ONLY Routine 12/27/2014 0:00 EST documented in this encounter Results * PAP TEST- RESULT ONLY (12/27/2014 0:00 EST) Pathology Report: CYTOPATHOLOGY REPORT Reports generated via electronic interface contain original data; however they are lacking the format of the original report. Caution should be taken when reading/interpreti ng unformatted reports. Name: ? LUCIANA MENENDEZ ? Accession #: ? [id number] ? : ? 1980 (Age: 34) ??F ?Collect Date: ? 12/27/2014 ? Location: ? [facility] ? Receive Date: ? 12/31/2014 ? Provider: LUBNA CENTENO [facility] Copy to: VANDA MADRIGAL CHARTER COORDINATOR ? Final Report SPECIMEN ADEQUACY ? Satisfactory for Evaluation - transformation zone component present GENERAL CATEGORIZATION ? Negative for Intraepithelial Lesion or Malignancy ?? Last Menstrual Period: 11/07/13 Previous Gynecologic Pathology: Yes: Hx. Abnormal pap 5+ yrs ago Other: Additional clinical information: 11/20/11 pap neg , HPV neg Specimen/Source: ??Pap Test, Cervix/Endocervix, ThinPrep Imaging System with manual evaluation Document reviewed and electronically signed by: ? Rachel Reyna, ARLEN(ASCP) ? Report ??Date: 01/06/2015 14:23 HPV with Pap Test ? Date Ordered: ? 01/11/2015 ? Status: ?? Signed Out ?Date Complete: ? 01/14/2015 ? By: ??System Interface ? Date Reported: ? 01/14/2015 ? Interpretation RESULT: Negative for HPV. No E6 or E7 mRNA is detected from HPV types 16,18,31,33,35, 39,45,51,52,56,58, 59,66, and 68 by cushion mat maker mediated amplification. Comments Document reviewed and electronically signed by: ? System Interface ? Report date: 01/14/2015 By the signature above, the attending physician certifies that he/she has personally conducted a gross and/or microscopic examination of the described specimens and rendered or confirmed the above diagnosis. End of Report [facility] 12/27/2014 12/31/2014 us Lubna GARG PATHOLOGY ORDERABLES Leila lopez Result [facility] [address] [place] [address] documented in this encounter Visit Diagnoses Not on filedocumented in this encounter
--- OUTSIDE RECORDS SUMMARY | 2024-12-19 00:21 | XMS_ITS | Encounter Summary ---
Author Organization [facility] Address [address] [place] [address] Care Team Providers Care Substance Abuse Counselor Name Role Phone Unavailable Primary Care Provider Unavailabl e Encounter Details Date Type Department Care Team (Late st Contact Info) Description 08/05/2006 8:45 EDT - 08/05/2006 11:59 EDT Hospital Encounter [address] [address] Michael Castorena MD [address] [place] [address], [address] [place] [id number] Discharge Disposition: Auto Discharge Social History Tobacco Use Types Packs/Day Years Used Date Smoking Tobacco: Never Assessed Comments Unknown Sex and Gender Information Value Date Recorded Sex Assigned at Not on file Legal Sex Female 18:38 EST Gender Identity Not on file Sexual Orientation Not on file documented as of this encounter Discharge Disposition Disposition Code Departure Means Destination Auto Discharge documented in this encounter Plan of Treatment Not on file documented as of this encounter Visit Diagnoses Not on filedocumented in this encounter
--- OUTSIDE RECORDS SUMMARY | 2024-12-19 00:21 | XMS_ITS | Encounter Summary ---
Author Organization [facility] Address [address] [place] [address] Care Team Providers Care Business Continuity Planning Director Name Role Phone Eric Lozoya MD Primary Care Provider Encounter Details Date Type Department Care Team (Late st Contact Info) Description 02/05/2022 Lab Requisition [facility] Pathology & Laboratory Medicine - [facility] [address] [place], [place] [address] Outr Resulting Lab, Provider Social History Tobacco [...] Procedure Name Priority Date/Time Associated Diagnosis Comments ZZCOVID-19 TEST [facility] PCR Today 02/04/2022 16:20 EDT COVID-19 TESTING Routine 02/04/2022 16:2 0 EDT documented in this encounter Results * COVID-19 TEST [facility] PCR (02/04/2022 16:20 EDT) Swab 02/04/2022 16:2 0 EDT 02/05/2022 21:15 EDT us Provider Outr Resulting Lab MICROBIOLOGY - GENER AL ORDERABLES Final Result [facility] [address] [place] [address] * COVID-19 TESTING (02/04/2022 16:20 EDT) COVID-19 rt-PCR Result Negative Negative 02/06/2022 13:06 EDT [facility] Comment: This test has not been FDA cleared or approved. This test has been authorized by FDA under an EUA for use by authorized laboratories. This test has been authorized only for detection of nucleic acid from 2019-nCoV, not for any other viruses or pathogens. This test is only authorized for the duration of the declaration that circumstances exist justifying the authorization of emergency use of in vitro diagnostic tests for detection and/or diagnosis of 2019-nCoV under section 564(b)(1) of Act, 21 U.S.C ?? 360bbb-3(b) (1), unless the authorization is terminated or revoked sooner. Negative results do not preclude 2019-nCoV infection and should not be used as the sole basis for treatment or other patient management decisions. Negative results must be combined with clinical observations, patient history, and epidemiological information. Testing was performed using the david SARS-CoV-2 assay ([employer] on the David 6800 System Performing Lab David [address] [facility] 02/06/2022 13:06 EDT [facility] Swab 02/04/2022 16:2 0 EDT 02/05/2022 21:15 EDT us Provider Outr Resulting Lab MICROBIOLOGY - GENER AL ORDERABLES Final Result [facility] [address] [place] [address] documented in this encounter Visit Diagnoses Not on filedocumented in this encounter Care Teams Business Continuity Planning Director Relationship Specialty Start Date End Date Eric Lozoya MD [address] [place] [phone] PCP - General 09/25/15 documented as of this encounter
--- OUTSIDE RECORDS SUMMARY | 2024-12-19 00:21 | XMS_ITS | Encounter Summary ---
Author Organization [facility] Address [address] [place] [address] Care Team Providers Care Tray Worker Name Role Phone Unavailable Primary Care Provider Unavailabl e Encounter Details Date Type Department Care Team (Late st Contact Info) Description 08/05/2006 Before PRISM Converted Visit (Maple) [facility] - Maple conversion [address] [place] [address] Michael Castorena MD [address] [facility], [facility] [address] [place] [address] Social History Tobacco Use Types Packs/Day Years Used Date Smoking Tobacco: Never Assessed Comments Unknown Sex and Gender Information Value Date Recorded Sex Assigned at Not on file Legal Sex Female 18:38 EST Gender Identity Not on file Sexual Orientation Not on file documented as of this encounter Consult Notes * Michael Castorena MD - 11/21/2009 0902 EST DIVISION OF [facility]THALMOLOGY [facility] CONSULTATION - Albert Bishop MD [address] [place] [id number] Dear Albert, Thank you for asking me to see Luciana Sinclair for evaluation of chronically red eyes. Ms. Sinclair, also knows as Ms. Barrett, is a 26-year-old woman who complains of 6 months of a waxing and waning course of redness of her left eye. She experiences no itching, foreign body sensation, pain, or discomfort of any kind. She notes that, initially both eyes were quite red, about 6 months ago, with the right eye clearing up over the course of about one week. She notes that she has had some improvementin the redness of her left eye with the use of topical steroids, although the redness hasnever dissipated completely. She is not currently using topical steroids, and last used prednisolone acetate drops about one month ago. She has experienced no discharge from her eyes, denies trauma, and has had no recent contact lens use. She has experienced no diplopia. She does have a history of seasonal allergies, and describes allergies to dust, ragweed, and cats. She has asthma. She has a family history of thyroid disease, with her mother and aunt having this condition. There is also a family history of breast cancer and diabetes. Visual acuity with spectacle correction was found to be 20/20 in each eye. Pupils were briskly reactive, with no afferent pupillary defect. Confrontation visual orellana were intact. Intraocular pressures were normal. Extraocular motility appeared to be full, with no evident lid lag or lid retraction. There was a moderate follicular conjunctival reaction at the tarsal conjunctiva of theleft lower eyelid, while the superior tarsal conjunctiva was unremarkable upon eversion of her left upper lid. There was moderate injection of the superior bulbar conjunctiva of the right eye, and more prominent conjunctival injection of the superior bulbar conjunctiva of the left eye. Moderate conjunctival injection was also present temporally in the left eye, particularly overlying the insertion of the lateral rectus muscle along with some conjunctival injection nasally and inferiorly. Conjunctival injection did appear to spare the limbus. No anterior chamber reaction was noted, and iris was normal bilateral with a clear lens noted in each eye. Albert, thank you for allowing me to evaluate this very interesting young patient. 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 I see no other evidence of thyroid eye disease at this time, and there is no proptosis (Deric measurements 15 mm bilateral withbase 95). 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 I believe the chlamydia enzyme immune assay has quite a good negative predictive value, so I think we can safely rule out this condition on the basis of the laboratory study. While the patient has had a bird as a pet previously, her findings are not typical of Chlamydia psittaci infection. Testing for Chlamydia psittaci would require separate LAILA study (Chlamydia trachomatis EIA does not show the presence of Chlamydia psittaci), but I believe we can forego this testing, given her clini mark presentation. I understand that she may have had a previously normal TSH study, but I believe that she likely should undergo further thyroid workup, including possibly T3, T4, and free T4 studies. She may well require an orbital CT scan to be performed at some point. It is unfortunately that she has no healthcare insurance at this point, but I believe at least the laboratory studies would be indicated. I will contact her primary care physician to see if we can arrange a complete thyroid workup. She does use Visine Advanced Care drops rarely (about 3 times in the past 6 months), and I suggested to her that very rare use of thismedication is permissible. I did warn her of the danger of rebound hyperemia with chronic use of this medication. I do not believe that treatment with topical steroids is indicated at this point, but I did give her a sample of Acular LS to use up to QID to see if this alleviates her redness somewhat while we are determining a possible systemic cause of her findings. With best regards, Signed by Michael Castorena MD 08/10/2006 19:02 Pavan Del Real MD Michael Castorena MD - Michael Castorena MD P - GLT Job ID: [id number] Document ID: [id number] cc: MD Albert Hi MD documented in this encounter Plan of Treatment Not on file documented as of this encounter Visit Diagnoses Not on filedocumented in this encounter
--- OUTSIDE RECORDS SUMMARY | 2024-12-19 00:21 | XMS_ITS | Encounter Summary ---
Author Organization [facility] Address [address] [place] [address] Care Team Providers Care Stringer Machine Tender Name Role Phone Unavailable Primary Care Provider Unavailabl e Encounter Details Date Type Department Care Team (Late st Contact Info) Description 11/20/2011 Results Only [facility] [phone] Suyapa Whittington, [address] [place], [place] [id number] Social History Tobacco Use Types Packs/Day Years [...] Diagnosis Comments PAP TEST- RESULT ONLY Routine 11/20/2011 0:00 EST documented in this encounter Results * PAP TEST- RESULT ONLY (11/20/2011 0:00 EST) Pathology Report: CYTOPATHOLOGY REPORT Reports generated via electronic interface contain original data; however they are lacking the format of the original report. Caution should be taken when reading/interpreti ng unformatted reports. Name: ? LUCIANA MENENDEZ ? Accession #: ? [id number] ? : ? 1980 (Age: 31) ??F ?Collect Date: ? 11/20/2011 ? Location: ? [facility] ? Receive Date: ? 11/23/2011 ? Provider: SUYAPA WHITTINGTON FRUIT DUMPER Copy to: ? Final Report SPECIMEN ADEQUACY ? Satisfactory for Evaluation - transformation zone component present GENERAL CATEGORIZATION ? Negative for Intraepithelial Lesion or Malignancy INTERPRETATION ? Reactive cellular changes associated with inflammation present (includes repair). Last Menstural Period: 10/26/11 Previous Gynecologic Pathology: Yes: H/o abnormal pap 5 + yrs ago Specimen/Source: ??Pap Test, Cervix/Endocervix, ThinPrep Imaging System with manual evaluation Document reviewed and electronically signed by: ? NAMITA THOMPSON MD ? Report ??Date: 11/25/2011 14:06 HPV with Pap Test ? Date Ordered: ? 11/25/2011 ? Status: ?? Signed Out ?Date Complete: ? 12/01/2011 ? By: ??System Interface ? Date Reported: ? 12/01/2011 ? Interpretation RESULT: Negative for HPV types 16, 18, 31, 33, 35, 39, 45, 51, 52, 56, 58, 59, and 68. Comments Document reviewed and electronically signed by: ? System Interface ? Report date: 12/01/2011 By the signature above, the attending physician certifies that he/she has personally conducted a gross and/or microscopic examination of the described specimens and rendered or confirmed the above diagnosis. End of Report [facility] 11/20/2011 11/23/2011 us Suyapa Whittington FRUIT DUMPER PATHOLOGY ORDERABLES Final Res ult Performing Organization Address City/State/[facility] Co de Phone Number [facility] [address] [place] [address] documented in this encounter Visit Diagnoses Not on filedocumented in this encounter
--- OUTSIDE RECORDS SUMMARY | 2024-12-19 00:21 | XMS_ITS | Encounter Summary ---
Author Organization [facility] Address [address] [place] [address] Care Team Providers Care Community Relations Representative Name Role Phone Eric Lozoya MD Primary Care Provider [phone] Encounter Details Date Type Department Care Team (Late st Contact Info) Description 10/14/2021 Lab Requisition [facility] Pathology & Laboratory Medicine - [facility] [address] [place] [address] Vanessa Abad, [employer] [address] [place] [phone] Encounter for other general examination Social History Tobacco Use Types Packs/Day Years [...] Name Priority Date/Time Associated Diagnosis Comments PAP TEST Today 10/13/2021 8:30 EST Encounter for other general examination HPV DNA DETECTION WITH GENOTYPING, PCR Today 10/13/2021 8:30 EST Encounter for other general examination documented in this encounter Results * HUMAN PAPILLOMAVIRUS (HPV) DETECTION-HIGH RISK TYPES (10/13/2021 8:30 EST) HPV other High Risk types, PCR Negative Negative 10/20/2021 13:45 EST [facility] Comment:No E6 or E7 mRNA is detected from HPV types 16,18,31,33,35,39,45,51,52,56,58,59,66, and 68 by log washer mediated amplification. Papanicolaou smear specimen (specimen) CERVIX UTERI STRUCTURE / Unknown 10/13/2021 8:30 EST 10/17/2021 10:31 EST us Vanessa Abad [employer] MICROBIOLOGY - GENERAL OR DERABLES Final Result [facility] [address] [place] [address] * PAP TEST (10/13/2021 8:30 EST) Specimens A. Cervix and/or Endocervix , ThinPrep Imaging System with Manual Evaluation 10/20/2021 13:45 [facility] Specimen Adequacy Satisfactory for Evaluation - transformation zone component present 10/20/2021 13:45 [facility] General Categorization Negative for intraepithelial lesion or malignancy 10/20/2021 13:45 [facility] Attestation . 10/20/2021 13:45 [facility] at 1345 Clinical History See below 10/20/20 21 13:45 [facility] HPV The result for the Human Papillomavirus (HPV) Detection-High Risk Types is Negative. No E6 or E7 mRNA is detected from HPV types 16,18,31,33,35,39 ,45,51,52,56,58,5 9,66, and 68 by log washer mediated amplification.Tanya ting was performed on specimen [id number] and was resulted on 10/20/2021 1342 EST by MARISELA, LAB INSTRUMENT RESULTS IN 10/20/2021 13:45 [facility] Performing Lab [facility] 10/20/2021 13:45 [facility] Scanned Images 10/20/2021 13:45 [facility] Papanicolaou smear specimen (specimen) CERVIX UTERI STRUCTURE / Unknown 10/13/2021 8:30 EST 10/14/2021 9:09 EST us Vanessa Abad APRN PATHOLOGY ORDERABLES Leila l Result [facility] [address] [place] [address] documented in this encounter Visit Diagnoses Diagnosis Encounter for other general examination documented in this encounter Care Teams Community Relations Representative Relationship Specialty Start Date End Date Eric Lozoya MD [address] [place] [address] [phone] PCP - General 09/25/15 documented as of this encounter
--- NOTE | 2024-12-19 07:48 | DI.MAMMO_ITS ---
Exam(s) MAMMO SCREENING EXAM: MAMMO SCREENING CLINICAL HISTORY: screening,z12.39 TECHNIQUE: Mammograms were interpreted according to the usual protocol including computer analysis w [employer] CAD system, tomosynthesis and C-view imaging. COMPARISON: 2020 and 2022 FINDINGS: The breasts are composed of scattered fibroglandular densities, Breast Density category B. No suspicious masses or suspicious microcalcifications are seen. No skin thickening or abnormal axillary lymph nodes are seen. There has been no significant change from prior exams. IMPRESSION: BI-RADS Category 1, Negative mammogram Yearly screening mammography is recommended. Breast Density - Category B, scattered fibroglandular densities. A negative radiographic report should not delay biopsy if a dominant or clinically suspicious mass is present. Up to ten percent of cancers are not identified on mammography. A negative report may reinforce clinical impression. Adenosis and dense breasts may obscure an underlying neoplasm. False positive reports average 6 to 10%. Patient will receive a letter notifying them of these results.
== END 2024-12-19 00:38 ==
LOC: DI 00:19
PROVIDERS: PCP Nurse Practitioner Family; Visit Provider Nurse Practitioner Family
DX: Z12.31 Encounter for screening mammogram for malignant neoplasm of breast (principal); R92.323 Mammographic fibroglandular density, bilateral breasts
CPT/HCPCS: 77063; 77067

== ENCOUNTER 2024-12-19 00:46 | Outpatient (CLI) | payer BC, SELFPAY ==
[2024-12-19 12:50] LABS: TSH (W/Ref FT4) 1.22 uIU/mL (0.36-3.74)
[2025-01-09 08:32] LABS: Result Summary Negative; Specimen Whole Blood
[2025-01-09 08:33] LABS: Result See Comments
[2025-01-09 08:39] LABS: Interpretation See Comments
[2025-01-09 08:50] LABS: Method See Comments
[2025-01-09 09:43] LABS: Disclaimer See Comments
== END 2024-12-19 00:47 | disposition home or self-care (01) ==
PROVIDERS: PCP Nurse Practitioner Family; Visit Provider Nurse Practitioner Family
DX: E03.9 Hypothyroidism, unspecified (principal); Z80.3 Family history of malignant neoplasm of breast
CPT/HCPCS: 36415; 81162; 84443